=== PATIENT | female | born 1965 | race Caucasian/White ===

== ENCOUNTER 2025-02-22 15:55 | Inpatient (IN) | payer OTHER, SELFPAY ==
[2025-02-20 21:36] VITALS: BP 165/74
[2025-02-20 21:42] VITALS: BMI 33.5
[2025-02-20 22:01] VITALS: BP 159/78
[2025-02-20 22:29] LABS: Hematocrit 41.6 % (37.0-47.0); Hemoglobin 14.4 g/dL (12.0-16.0); Mean Corp Hgb Conc. 34.6 g/dL (33.0-37.0); Mean Corpuscular Volume 88.9 fL (81.0-99.0); Nucleated Red Blood Cells % 0 %; Platelet Count 185 10^3/uL (130-400); Red Cell Dist. Width 13.5 % (11.5-14.5)
[2025-02-20] MEDS: DUONEB 3 ML INH (22:41)
[2025-02-20 23:00] VITALS: BP 162/117
[2025-02-20 23:04] LABS: ALT (SGPT) 18 U/L (0-35); AST (SGOT) 25 U/L (14-36); Albumin 4.0 g/dl (3.5-5.0); Alkaline Phosphatase 103 U/L (38-126); Blood Urea Nitrogen 13 mg/dl (7-17); Calcium 9.1 mg/dl (8.4-10.2); Carbon Dioxide 23 mmol/L (22-30); Chloride 104 mmol/L (98-107); Estimated Creatinine Clearance 84 ml/min; Glucose 130 mg/dl (70-99); Potassium 4.2 mmol/L (3.5-5.1); Sodium 134 mmol/L (135-145); Total Protein 6.5 g/dl (6.3-8.2); eGFR > 60.00
[2025-02-20 23:16] LABS: INR 2.76; PT 29.1 Sec (11.4-14.6)
[2025-02-20] MEDS: DECADRON 10 MG IV (23:21)
[2025-02-21] VITALS (12 sets, daily range): BP systolic 103–144; BP diastolic 54–92; O2SAT 97; BMI 32.5; BMI 32.3
[2025-02-21] MEDS: DUONEB 3 ML INH (01:26)
--- NOTE | 2025-02-21 01:29 | ED.GENMED ---
Addendum entered and electronically signed by Declan Crystal DO 02/21/25 03:44:
In light of leukocytosis and urinalysis with 3+ leuk esterase and white cells, cover with antibiotics for UTI.
Original Note:
History of Present Illness
General
Chief Complaint: Breathing Problem
Source: patient
Time Seen by Provider: 02/20/25 21:46
History of Present Illness
History of Present Illness:
Note:
CHIEF COMPLAINT(S)
Difficulty breathing.
HISTORY OF PRESENT ILLNESS
The patient is a 59-year-old female with a history of stroke, currently presenting to the emergency department with difficulty breathing, which started slightly the day before yesterday and worsened by this morning and tonight. She has a
tracheostomy from a past stroke, which occurred approximately 15 years ago. The patients brother reports that there was no fever, and she felt tired. The patients breathing improved slightly after receiving breathing treatments provided by EMS. The
brother also confirms that patient had a history of atrial fibrillation and heavy smoking, but was never diagnosed with asthma or emphysema. The patient also has a thyroid problem, as mentioned during the discussion.
ADDITIONAL HISTORY OBTAINED FROM SOURCES OTHER THAN THE PATIENT
Per the patients brother, she has a history of stroke and atrial fibrillation and was a heavy smoker. He additionally notes she has a thyroid problem and takes Coumadin (Warfarin) for atrial fibrillation. The patients brother confirms that she was
diagnosed with aphasia post-stroke, with slight weakness in the right lower extremity. She lives independently but is supported by her brother who is a mile away.
CHRONIC MEDICAL CONDITIONS SIGNIFICANTLY AFFECTING CARE
- Stroke (with aphasia and slight right lower extremity weakness)
- Atrial fibrillation
- Thyroid problem (unspecified)
- History of smoking
SOCIAL HISTORY
The patient was a heavy smoker, although the specific cessation date was not mentioned.
MEDICATIONS
The patient is on Coumadin (Warfarin) for atrial fibrillation.
REVIEW OF SYSTEMS
- Respiratory: Difficulty breathing since yesterday, slightly relieved by breathing treatments.
- Neurological: Aphasia and slight right lower extremity weakness due to past stroke.
- Cardiovascular: History of atrial fibrillation.
PHYSICAL EXAM
General: Alert, no acute distress.
Skin: Warm, dry.
Head: Normocephalic, atraumatic.
Neck: Supple, trachea midline.
Eye, Ears, Nose, Mouth, and Throat: Oral mucosa moist.
Respiratory: Mild bilateral rhonchi, respirations are non-labored.
Cardiovascular: Heart is regular without murmur, normal peripheral perfusion.
Gastrointestinal: Abdomen nondistended.
Back: Normal range of motion, normal alignment.
Musculoskeletal: Normal range of motion, normal strength, slight weakness in right lower extremity.
Neurological: Alert, aphasia present, slight right lower extremity weakness.
Psychiatric: Cooperative, appropriate mood and affect.
PROBLEM LIST
Acute Problems:
- Difficulty breathing
- Mild bilateral rhonchi
Chronic Problems:
- Stroke with aphasia and right lower extremity weakness
- Atrial fibrillation
- Thyroid problem
- Heavy smoking history
PLAN
An x-ray will be performed to check for any narrowing or inflammation due to the old tracheostomy or in the lungs. An additional breathing treatment and potentially steroids could be administered to reduce inflammation. The possibility of conducting
an INR test to manage anticoagulation therapy with Warfarin. Assessing the need for further breathing treatments based on the x-ray and lab results.
DIFFERENTIAL DIAGNOSIS
The Differential Diagnosis includes, in no particular order and is not limited to:
1. Chronic Obstructive Pulmonary Disease exacerbation
2. Lung infection or pneumonia
3. Pulmonary edema
4. Asthma
5. Pulmonary fibrosis
6. Cardiogenic dyspnea due to atrial fibrillation
7. Pulmonary embolism
8. Tracheal stenosis post-tracheostomy
9. Heart failure
10. Interstitial lung disease
Disposition:
SUMMARY OF ENCOUNTER
The patient, a 59-year-old female with a history of stroke and atrial fibrillation, presented to the emergency department with difficulty breathing. She has a history of tracheostomy from a past stroke. She felt slightly better after receiving
bronchodilators. There is suspicion of Chronic Obstructive Pulmonary Disease (COPD) as the underlying cause due to her history of heavy smoking, although no stridor was noted. A possible subglottic stenosis was considered. On reassessment, the
patient exhibited dyspnea upon ambulation to the bathroom. She received steroids for treatment and was admitted for close monitoring.
DISPOSITION
Admit for close monitoring.
ASSESSMENT
The patient likely has COPD exacerbation contributing to her respiratory symptoms. Other considerations include subglottic stenosis secondary to her tracheostomy history, though no overt signs were noted. A lung infection was ruled out based on the
chest x-ray findings.
EMERGENCY TREATMENTS ADMINISTERED
Steroids were administered to manage inflammation possibly contributing to her breathing difficulties.
INDEPENDENT REVIEW OF LABS AND INTERPRETATION OF TESTS
- My independent review of the chest x-ray indicates no pneumonia, helping to rule out a lung infection.
- My independent review of the INR shows it is therapeutic at 2.7.
- My independent review of chemistries and liver function tests (LFTs) indicates that they are normal.
PLAN
The patient has been admitted for close monitoring of her respiratory status. Further evaluation of her breathing difficulties will be conducted to discern the exact cause, whether COPD or a complication related to her tracheostomy. Continued
monitoring and management of her atrial fibrillation with therapeutic INR levels will be necessary.
MEDICAL DECISION MAKING
- Number and Complexity of Problems Addressed:
- Chronic conditions affecting care: Stroke with aphasia and right lower extremity weakness, atrial fibrillation, thyroid problem, history of smoking.
- Differential Diagnosis: Chronic Obstructive Pulmonary Disease exacerbation, lung infection or pneumonia, pulmonary edema, asthma, tracheal stenosis post-tracheostomy, heart failure, interstitial lung disease.
- Data:
- Category 1: My independent interpretation of the chest x-ray, reviewed INR and chemistries.
- Category 2: Clinical information was obtained from an independent historian, the patients brother.
- Risk:
- Prescription drug management and therapy requiring monitoring for toxicity due to the administration of steroids and management of the patients atrial fibrillation with Warfarin.
DIAGNOSIS
1. Chronic Obstructive Pulmonary Disease exacerbation (ICD-10: J44.1)
2. History of stroke with aphasia and right lower extremity weakness (ICD-10: I69.920)
3. Atrial fibrillation (ICD-10: I48.91)
Past History
Past History
ED Past Medical History: Arrthythmia and CVA
Social History
Tobacco: Former smoker
Personal: Single
Living: alone
Employment: Disabled
Family History
Family History: Other (Noncontributory)
Phy Exam
Physical Exam
Physical Exam:
.
Scores
Heart Failure Risk
Heart Failure Risk Score: Not Applicable
Course
Orders/Labs/Results
Orders:
Orders
02/20/25 21:34
Electrocardiogram (*1) Urgent
Reason for Study: Other
Other Reason for Exam: Respiratory Distress
Cardiac Monitoring- Treatment ONCE
EKG- Treatment ONCE
IV Insert/Care/Rem.- Treatment PRN
CR Chest - 2 Views Urgent
Comment:
Reason For Exam: respiratory distress
O2 Therapy [RESP] Urgent
Titrate/Wean O2 to maintain O2 sat greater than (%): 93
Special Instructions: TO MAINTAIN CONTINUOUS O2 SATS >/= 93%
Pulse Ox/cont/shift [RESP] Urgent
Quantity: 1
Special Instructions: continuous pulse ox
02/20/25 22:16
Complete Blood Count/With Diff Urgent
Comprehensive Metabolic Panel Urgent
02/20/25 22:33
Ipratropium/Albuterol Sulfate [Duoneb] 3 ml INH R NOW ONE
02/20/25 22:59
PT/INR [Prothrombin Time] Urgent
02/20/25 23:18
Dexamethasone Sod Phosphate [Decadron] 10 mg IV NOW STA
02/21/25 01:26
Ipratropium/Albuterol Sulfate [Duoneb] 3 ml INH R NOW ONE
02/21/25 01:29
Ipratropium/Albuterol Sulfate [Duoneb] 3 ml INH R NOW STA
02/21/25 01:32
Vital Signs- Treatment ONCE
Frequency: Once
02/21/25 01:54
Urinalysis Reflex To Culture Urgent
Date Specimen was Collected: 02/21/25
Time Specimen was Collected: 01:52
Urine Microscopic Reflex Cult Urgent
Urine Culture Urgent
LENORE Source: U
Specimen Description:
Date Specimen was Collected: 02/21/25
Time Specimen was Collected: :52
Abnormal Lab Results
02/20/25 02/20/25 02/21/25
22:16 22:59 01:54
WBC 12.8 H 10^3/uL
(4.8-10.8)
MPV 10.7 H fL
(7.4-10.4)
Abs Immat Gran (auto) 0.1 H 10^3/uL
(0-0.05)
Absolute Neuts (auto) 11.6 H 10^3/uL
(1.4-6.5)
Absolute Lymphs (auto) 0.6 L 10^3/uL
(1.2-3.4)
Neutrophils % 91.0 H %
(42.2-75.2)
Lymphocytes % 4.7 L %
(20.5-51.1)
PT 29.1 H Sec
(11.4-14.6)
Sodium 134 L mmol/L
(135-145)
Glucose 130 H mg/dl
(70-99)
Ur Occult Blood Reflex 3+ A
(Negative)
Leukocyte Esterase Rfl 3+ A
(Negative)
Urine RBC 11-15 A /HPF
(0-2)
Urine WBC (Reflex) 16-20 A /HPF
(0-5)
Urine Bacteria (Reflex) Moderate A
(Negative)
02/20/25 22:16
02/20/25 22:16
Vital Signs
Initial and Last Documented VS:
Initial Vital Signs
Temp Pulse Resp BP Pulse Ox
99.1 F 93 26 165/74 93
02/20/25 21:36 02/20/25 21:36 02/20/25 21:36 02/20/25 21:36 02/20/25 21:36
Last Documented Vital Signs
Temp Pulse Resp BP Pulse Ox
99.1 F 81 17 103/56 90
02/20/25 22:12 02/21/25 03:00 02/21/25 03:00 02/21/25 03:00 02/21/25 03:00
*Pulse Oximetry
SaO2: 96
Oxygen Mode of Delivery: Room air
Patient hypoxic: no
*Critical Care Note
Total Time (30-74mins, 75-104mins- exclusive of procedures): Not Applicable
ED Attending Note
-
Portions of this chart may have been created with voice recognition software.� Occasional wrong word or��sound alike� substitutions may have occurred due to the inherent limitations of voice recognition software.
Discharge Plan
Departure
Patient Disposition: Admit
Date of Disposition: 02/21/25
Time of Disposition: 01:30
Admit to: Telemetry
Presentation/result/management discussed w/ accepting MD/DO: Hospitalist
Discharge Problem:
Dyspnea, suspected COPD
Prescriptions:
No Action
levetiracetam 500 MG tablet
500 mg PO BID
warfarin [Jantoven] 2.5 MG tablet
2.5 mg PO .MONWEDFRI
warfarin [Jantoven] 5 MG tablet
5 mg PO .SUNTUETHUSAT
methimazole 5 MG tablet
5 mg PO DAILY
metoprolol tartrate 25 MG tablet
25 mg PO BID
Referrals:
Syh Fox CRNP [Family Provider, General]
Interventions
Interventions:
*Risk Screen - Suicide Last Done: 02/20/25 22:01
*General Assessment Last Done: 02/20/25 21:42
*Neglect/Abuse Screening Last Done: 02/20/25 22:01
*ED- Fall Risk Assessment Last Done: 02/20/25 21:42
*ED COVID-19 Vaccine History Last Done: 02/20/25 21:42
ED- Cardiac Assessment Last Done: 02/20/25 22:01
ED- Pulmonary Assessment Last Done: 02/20/25 22:01
Discharge Date and Time
Print Language: BULGARIAN
[2025-02-21 02:00] LABS: Urine Character Clear (Clear)
[2025-02-21 03:15] LABS: Urine Urothelial Cell 16-20 /LPF (FEW)
[2025-02-21 03:19] LABS: Urine White Cell 16-20 /HPF (0-5)
[2025-02-21] MEDS: VENTOLIN NEBULES 7.5 MG INH (03:51)
[2025-02-21] MEDS: ROCEPHIN 1000 MG IV (03:52)
--- NOTE | 2025-02-21 05:12 | HPS.HSE ---
Family Physician
-
Family Physician: Shy Fox
Chief Complaint
-
SOB
History of Present Illness
Patient is a 59y F with PMH significant for CVA with R hemiparesis and aphasia who presents to ED complaining of SOB. Patient states that she has been SOB for the past two days - with symptoms increasing throughout that time. She describes a
'pressure' sensation on her chest and difficulty getting a deep breath. No cough. No fevers / chills. No abdominal pain. No GI or symptoms.
Medical History
Past Medical History
Past Medical History: Reports Other
Additional Past Medical History:
CVA with Right Hemiparesis / Expressive Aphasia
Atrial Fibrillation
Thyroid Disorder
Obesity
Past Surgical History: Reports Other
Additional Past Surgical History:
Tracheostomy
Social History
Tobacco: Former Smoker
Alcohol: None
Drug: None
Living: Alone
Family History
Family History: Not pertinent
Allergies / Home Medications
Allergies reflects when Allergies were last updated in [employer]
Home Medications with original date entered in [employer]
Allergy/Medication List:
Patient unable to provide current medications / doses.
If medication reconciliation has not been performed, why?: Medication List N/A
Review of Systems
-
History Source: Patient
A 12 point ROS was completed and negative except as noted: Yes
Constitutional: Reports Fatigue; Denies Fever or Chills
EENT: Denies Sore Throat
Respiratory: Reports Trouble Breathing; Denies Cough
Cardiac: Reports Chest Pain; Denies Diaphoresis or Palpitations
Abdomen/GI: Denies Abdominal Pain, Nausea, Vomiting or Diarrhea
: Denies Dysuria or Frequency
Musculoskeletal: Denies Joint Pain or Edema
Neurological: Reports Weakness; Denies Dizzy or Headache
Psych: Denies Depression or Anxiety
Physical Exam
Vital Signs
Vital Signs
Temp Pulse Resp BP Pulse Ox
99.1 F 81 17 103/56 90
02/20/25 22:12 02/21/25 03:00 02/21/25 03:00 02/21/25 03:00 02/21/25 03:00
Physical Exam
General: Other (59y F in mild distress due to dyspnea.)
HEENT: Moist mucous membranes, PERRLA and Other (Thick neck. Tracheostomy scar.)
Respiratory: Clear; No Wheezes, Rales or Rhonchi
Cardiac: S1/S2 and Irregular Rhythm; No Murmur
GI: Soft, Non Tender, Non Distended and Normal Bowel Sounds
Musculoskeletal: No Clubbing, No Cyanosis and No Edema
Neuro: AO x 3 and Other (R sided weakness. Expressive aphasia.)
Laboratory Results
-
02/20/25 22:16
02/20/25 22:16
Laboratory Results
PT 29.1 Sec (11.4-14.6) H 02/20/25 22:59
INR 2.76 02/20/25 22:59
Total Bilirubin 0.6 mg/dl (0.2-1.3) 02/20/25 22:16
AST 25 U/L (14-36) 02/20/25 22:16
ALT 18 U/L (0-35) 02/20/25 22:16
Alkaline Phosphatase 103 U/L (38-126) 02/20/25 22:16
Impression/Plan
-
A/P: Patient is a 59y F with PMH significant for CVA with R hemiparesis / aphasia and A-Fib who presents to ED complaining of SOB.
Subjective Dyspnea
- Observe overnight for further evaluation and treatment.
- Unclear etiology of symptoms.
- No wheezing on exam for me. No cough. CXR clear.
- Patient describes sense of chest pressure.
- EKG with A-Fib and non-specific ST changes with no prior tracing to compare.
- Check troponin now and trend.
- ASA daily.
- Follow for hypoxemia, cough, wheezing or other new symptoms.
- ? tracheitis or viral bronchitis.
- Supportive care, nebs, etc.
- Patient on Coumadin with therapeutic INR so PE seems unlikely.
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
- Stable. No new focal deficits.
- Patient is capable of communication albeit with some difficulty.
- Need formal med rec in AM and then resume appropriate meds.
Atrial Fibrillation - Unknown Type
- Stable. Continue Coumadin and follow daily INR / adjust as needed.
- Med rec in AM to confirm dose, etc.
Abnormal UA
- UA with squamous cells and no reported urinary symptoms.
- Hold on further abx for now and follow-up culture data.
DVT Prophylaxis: On Coumadin
Code Status: Full
[2025-02-21 05:38] LABS: COVID-19 Antigen Negative (Negative)
[2025-02-21 06:00] LABS: Troponin I 0.016 ng/ml
[2025-02-21 06:18] LABS: Hematocrit 40.4 % (37.0-47.0); Hemoglobin 14.0 g/dL (12.0-16.0); Mean Corp Hgb Conc. 34.7 g/dL (33.0-37.0); Mean Corpuscular Volume 89.2 fL (81.0-99.0); Platelet Count 187 10^3/uL (130-400); Red Cell Dist. Width 13.6 % (11.5-14.5)
[2025-02-21 06:25] LABS: INR 2.22; PT 24.7 Sec (11.4-14.6)
[2025-02-21 06:51] LABS: Blood Urea Nitrogen 10 mg/dl (7-17); Calcium 8.5 mg/dl (8.4-10.2); Carbon Dioxide 23 mmol/L (22-30); Chloride 107 mmol/L (98-107); Estimated Creatinine Clearance 95 ml/min; Glucose 187 mg/dl (70-99); Potassium 3.8 mmol/L (3.5-5.1); Sodium 138 mmol/L (135-145); eGFR > 60.00
[2025-02-21 06:57] LABS: Troponin I 0.019 ng/ml
[2025-02-21] MEDS: LOW STRENGTH ASPIRIN 81 MG PO (07:28)
--- NOTE | 2025-02-21 09:28 | CARDSERVLU ---
Echocardiogram with Lumason completed after protocol screening completed. Allergies verified.
Patent IV site: __existing 22P RH___
IV site flushed with 0.9% NaCl pre and post administration.
Diluted bolus method utilized to enhance visualization of ventricular nguyễn.
Total volume given: ___2.5_ mL
Tolerated well. Request from ED to send pt to ultrasound at completion of testing in cardiac services.
Patient tolerated all procedures well without complications.
[2025-02-21 12:36] LABS: Troponin I < 0.012 ng/ml
[2025-02-21] MEDS: KEPPRA 500 MG PO ×2 (13:24→20:40)
[2025-02-21] MEDS: LASIX 40 MG IV (13:24)
--- NOTE | 2025-02-21 13:50 | PTOTSP ---
Speech Therapy Evaluation:
Pt with acute on chronic risk factors for dysphagia including hx of CVA with subsequent trach, compounded by ongoing shortness of breath. Pt endorsed occasional trouble swallowing, however unable to elaborate given expressive language deficits. At
bedside, oral phase grossly functional. Mastication prolonged but likely related to partially edentulous state versus true oral dysphagia. No overt s/sx of aspiration across trials. CXR without pneumonia, WBC WNL, and pt on room air.
Recommend:
1. Continue regular solids and thin liquids
2. Meds as tolerated
3. General aspiration precautions
4. KETTLE SKIMMER to follow to monitor tolerance of diet, likely brief
--- NOTE | 2025-02-21 14:41 | W.PN.UPDATE ---
Update Note
Progress Note Update
Patient dyspneic, elevated proBNP. Echo with EF of 30 to 35%. Initiated IV diuretics. Cardiology consulted.
Switch lopressor to Toprol
ASA as per Cards
On coumadin
--- NOTE | 2025-02-21 14:50 | CON.CAR ---
Addendum entered and electronically signed by Omari Orellana DO 02/21/25 21:25:
I saw and examined the patient.
The Greenhouse Laborer's note was reviewed and I agree with the note.
Comment:
Plan:
Pt with PMH of prior CVA with thrombectomy at [facility] with residual aphasia. She is on coumadin and son relates a hx of AFib although PCP notes fail to mention this.
Additional records from [facility] should be acquired if able.
CM of unknown duration noted.
Cont IV diuresis for HF
IF CM is subacute but new, pt may benefit from ischemic eval inpt vs outpt, stress vs cath pending chronicity and response to therapy.
She does have episodes of palpitations at times. she will require outpt monitor to assess for recurrent AFib and burden
Troponins are negative.
Will work on GDMT as bp will allow including beta adán and ACEI/ARB and potentially aldactone.
Discussed with family at bedside including son.
Addendum entered and electronically signed by Karen Hendricks PA-C 02/21/25 15:37:
On review of records from including most recent office visit 10/19/24, patient with no known history of atrial fibrillation, but is on Coumadin for 'other thrombophilia'. Other medical history as listed below.
Original Note:
Consultation
Consultation Request
Date/Time Consultation Performed: 02/21/25
Requesting Provider: Dr. Enamorado
Performing Provider: Karen Hendricks PA-C for Dr. Orellana
Reason for Consultation: SOB, abnormal echo
Medical History
-
Chief Complaint: SOB
History of Present Illness:
Patient is a 59-year-old female with past medical history of hyperthyroidism, history of stroke with residual expressive aphasia, prior tracheostomy, history of seizure, atrial fibrillation on chronic Coumadin managed by PCP who presented to
[facility] for evaluation of shortness of breath. She reports noting dyspnea on exertion which came on suddenly. Denies chest pain or palpitations. Cardiology consulted as echocardiogram showed EF 30 to 35% with no prior to compare.
Patient and family at bedside are unsure if she has a lure maker. PCP is Shy ARREDONDO.
PMH:
History of CVA with residual expressive aphasia
Prior tracheostomy in setting of above
History of seizure
Atrial fibrillation on chronic coumadin managed by PCP
Hyperthyroidism
Former smoker
Past Medical History
Past Medical History: Other (in HPI)
Social History
Tobacco: Former Smoker
Living: Alone
Family History
Family History: Reviewed & Not Pertinent
Allergies / Home Medications
Allergy/AdvReac Type Severity Reaction Status Date / Time
No Known Allergies Allergy Verified 11/13/17 13:43
�Medication �Instructions �Recorded �Confirmed �Type
levetiracetam 500 mg tablet 500 mg PO BID 02/21/25 02/21/25 History
(Keppra)
methimazole 5 mg tablet 5 mg PO DAILY 02/21/25 02/21/25 History
metoprolol tartrate 25 mg tablet 25 mg PO DAILY 02/21/25 02/21/25 History
warfarin 2.5 mg tablet 2.5 mg PO DIRECTED 02/21/25 02/21/25 History
Review of Systems
-
History Source: Patient and Family
All other systems: Negative unless noted
Physical Exam
Vital Signs
Temp Pulse Resp BP Pulse Ox
98 F 78 16 129/78 96
02/21/25 10:56 02/21/25 13:24 02/21/25 10:56 02/21/25 13:24 02/21/25 10:59
Lab Results
02/21/25 05:57
02/21/25 05:57
Troponin I < 0.012 ng/ml D 02/21/25 11:50
Fpc-T-Ioamosknuuq Pept 2040 pg/ml 02/21/25 05:57
Physical Exam
General: No Apparent Distress, Comfortable and Other (sitting in chair)
HEENT: Normocephalic, Anicteric and Moist Mucous Membranes
Respiratory: Clear and Non Labored Respirations
Cardiac: Regular Rhythm
GI: Soft, Non Tender, Non Distended and Normal Bowel Sounds
Musculoskeletal: No Clubbing, No Cyanosis and No Edema
Skin: Warm and Dry
Neuro: Awake, Alert, Oriented (to self, place) and Other (expressive aphasia)
Impression / Plan
-
PCP: Shy ARREDONDO
Pantry Cook: unknown
Assessment:
Presentation with SOB
COPD exacerbation
Acute HFrEF
CM, EF 30-35%
History of CVA with residual expressive aphasia
Prior tracheostomy in setting of above
History of seizure
Atrial fibrillation on chronic coumadin managed by PCP
Hyperthyroidism
Former smoker
Echo 02/21/2025: TDS, EF 30 to 35%, diffusely hypokinetic LV with apical dyskinesis, trivial pericardial effusion, mild MR, no prior for comparison
Plan:
- Patient presented with shortness of breath, particularly with exertion. With concern for COPD exacerbation, however then echocardiogram showed reduced EF 30 to 35%, unclear if new. proBNP elevated at 2039. Chest x-ray read as no acute
cardiopulm process. cardiology consulted for evaluation for heart failure, new diagnosis for patient
- requested records from PCP for review
- Continue IV Lasix, given 40mg IV today.
- Echocardiogram reviewed with patient and family at bedside
- Troponins in negative range. No chest pain
- Transitioned Lopressor to Toprol
- Creatinine stable at 0.7. Will add DAVE versus ARB, Aldactone, SGLT2 inhibitor as blood pressure/creatinine allow
- CHF education
- Will need eventual ischemic evaluation. Would consider for inpatient nuclear stress testing versus cardiac catheterization, likely would favor former given comorbidities
- INR therapeutic at 2.22. If plan for cardiac catheterization, will need to hold and would load with aspirin
- check TSH
- Peripheral vascular ultrasound without evidence of DVT
- Discussed with nursing
Data Reviewed
-
EKG: Tracing Personally Visualized and interpreted
Radiology: Report Reviewed by me
Ultrasound: Report Reviewed by me
Medical Tests (Nuc Med, Echo etc): Report Reviewed by me
Labs: Labs Reviewed by me
Old Records: Reviewed
--- NOTE | 2025-02-21 15:03 | CM ---
CM reviewed chart and met with pt and her stepmother Corinna karen in ED. Pt lives alone in 3rd floor apartment, no elevator, 3 full flights of steps.
Independent in ADLs, personal care and ambulation. Uses cane. Only other DME is tub/shower rails.
Confirms prescription coverage
OBS form reviewed and signed
Hx VN, unsure of agency, hx [facility] after stroke, no history SNF.
PCP: Shy Fox
Pharmacy: [facility], [address], [place]
Anticipate dc home, CM will continue to follow for all discharge panning needs.
[2025-02-21 15:52] LABS: Magnesium 2.0 mg/dl (1.6-2.3)
[2025-02-21] MEDS: COUMADIN 3 MG PO (18:26)
--- NOTE | 2025-02-21 18:52 | PTCARENOTE ---
Rec'd pt from the ED, oriented to room and unit. Pt placed on tele. Pt call joshi provided, encouraged pt to ring melchor. Pt denies pain. pt has aphasia, able to make her basic needs known.
[2025-02-21] MEDS: VENTOLIN NEBULES 2.5 MG INH (23:24)
[2025-02-22] VITALS (7 sets, daily range): BP systolic 96–147; BP diastolic 50–96; BMI 32.3
[2025-02-22] MEDS: VENTOLIN NEBULES 2.5 MG INH (04:30)
--- NOTE | 2025-02-22 04:46 | PTCARENOTE ---
Patient had a 9 beat run of asymptomatic VTach. BP was 143/96 and HR was 77. Patient is now normal sinus rhythm with PVC`s. PERSONNEL MANAGER made aware.
[2025-02-22 08:24] LABS: Hematocrit 41.8 % (37.0-47.0); Hemoglobin 14.0 g/dL (12.0-16.0); Mean Corp Hgb Conc. 33.5 g/dL (33.0-37.0); Mean Corpuscular Volume 90.9 fL (81.0-99.0); Platelet Count 213 10^3/uL (130-400); Red Cell Dist. Width 13.8 % (11.5-14.5)
[2025-02-22 08:30] LABS: INR 1.87; PT 22.0 Sec (11.4-14.6)
[2025-02-22] MEDS: TOPROL XL 25 MG PO (08:40)
[2025-02-22] MEDS: TAPAZOLE 5 MG PO (08:40)
[2025-02-22] MEDS: KEPPRA 500 MG PO ×2 (08:41→19:59)
[2025-02-22] MEDS: LASIX 40 MG IV (08:41)
[2025-02-22 08:56] LABS: ALT (SGPT) 18 U/L (0-35); AST (SGOT) 21 U/L (14-36); Albumin 3.8 g/dl (3.5-5.0); Alkaline Phosphatase 90 U/L (38-126); Blood Urea Nitrogen 19 mg/dl (7-17); Calcium 8.7 mg/dl (8.4-10.2); Carbon Dioxide 29 mmol/L (22-30); Chloride 104 mmol/L (98-107); Estimated Creatinine Clearance 73 ml/min; Glucose 126 mg/dl (70-99); Magnesium 2.2 mg/dl (1.6-2.3); Potassium 3.6 mmol/L (3.5-5.1); Sodium 140 mmol/L (135-145); Total Protein 6.3 g/dl (6.3-8.2); eGFR > 60.00
--- NOTE | 2025-02-22 10:13 | CM ---
Reviewed chart. Met with patient at bedside. Remains on IV lasix and room air.
Plan: pending the results or cardiac testing
--- NOTE | 2025-02-22 13:42 | W.PN.HOSP.TC ---
Today's Communication/Plan
-
cont iv diuresis
monitor daily weights, Is&Os
F/u Lipid panel
Toprol
Add on Entresto and GDMT as per cards - Can decide once established if inpt v outpt CAD eval being performed
Assessment / Plan
Assessment / Plan
Physical Exam
General: Other (59y F in mild distress due to dyspnea.)
HEENT: Moist mucous membranes, PERRLA and Other (Thick neck. Tracheostomy scar.)
Respiratory: Clear; No Wheezes, Rales or Rhonchi
Cardiac: S1/S2 and Irregular Rhythm; No Murmur
GI: Soft, Non Tender, Non Distended and Normal Bowel Sounds
Musculoskeletal: No Clubbing, No Cyanosis and No Edema
Neuro: AO x 3 and Other (R sided weakness. Expressive aphasia.)
A/P: Patient is a 59y F with PMH significant for CVA with R hemiparesis / aphasia and A-Fib who presents to ED complaining of SOB.
Subjective Dyspnea
#Acute HFrEF
� Continue IV diuresis
� Monitor Daily weights, I's and O's
� Cardiology consulted
� Switch Lopressor to Toprol
� TSH 1.5
� Troponins negative
� GDMT as per cardiology, anticipate initiating Entresto
� Heart cath versus nuclear stress test as per cardiology
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
- Stable. No new focal deficits.
- Patient is capable of communication albeit with some difficulty.
�On Coumadin
� No aspirin although on Coumadin
� Follow-up outpatient
� Follow LDL
Atrial Fibrillation - Unknown Type
- Stable. Continue Coumadin and follow daily INR / adjust as needed.
- Switch to Toprol
� Patient has palpitations times, will require outpatient monitor
#Seizures
� Continue Keppra
DVT Prophylaxis: On Coumadin
Code Status: Full
Total time spent on today's encounter was 51 minutes which included time spent in counseling the patient/family regarding diagnosis and treatment plan as listed above, goals of care, and symptom management. Case was discussed with nursing staff,
specialists, and care coordinators/case management. All labs and imaging personally reviewed by me. Remainder the time spent in detailed review of previous records, lab data, imaging, and other medical provider documentation.
Anticipated Discharge: Within 24 hours
Subjective/Interval History
-
Date of Service: February 22, 2025
not much subjective improvement
Objective Data
-
Labs:
Laboratory Results
02/22/25
07:43
WBC 9.6
Hgb 14.0
Hct 41.8
Plt Count 213
PT 22.0 H
INR 1.87
Sodium 140
Potassium 3.6
Chloride 104
Carbon Dioxide 29
BUN 19 H
Creatinine 0.9
Glucose 126 H
Calcium 8.7
Total Bilirubin 0.3
AST 21
ALT 18
Alkaline Phosphatase 90
Vital Signs:
Vital Signs
Temp Pulse Resp BP Pulse Ox
98.1 F 83 16 147/81 95
02/22/25 11:15 02/22/25 11:15 02/22/25 11:15 02/22/25 11:15 02/22/25 11:15
I&O
02/21/25 02/22/25 02/23/25
06:59 06:59 06:59
Intake Total 200 / 200
Output Total 700 / 700
Balance -500 / -500
Review of Systems
-
History Source: Patient
All other systems: Not reviewed unless documented
Data Reviewed
-
Medical Tests (Nuc Med, Echo etc): Report Reviewed by me
Labs: Labs Reviewed by me
--- NOTE | 2025-02-22 14:31 | W.PN.CARDCBS ---
Addendum entered and electronically signed by Desirae iMchael DO 02/22/25 22:09:
I saw and examined the patient.
The Staffing Director's note was reviewed and I agree with the note.
Comment: Patient seen and examined. Difficult historian given prior stroke. Also discussed history and current plan with patient's family member and caregiver Corinna
GEN: NAD with expressive aphasia/Chronic right-sided weakness
HEENT: mmm. trach scar
LUNGS: CTA B/L, no wheezes/rales
CV: Reg, S1/S2, no murmur
ABD: soft, BS+, NT/ND
EXT: No edema
Plan:
Presented with shortness of breath found to have new cardiomyopathy with a EF 30-35%, etiology unknown
- Volume status improving with IV Lasix
- Echocardiogram with EF 30-35% with apical dyskinesis and no prior for comparison. Patient and family deny prior history of cardiomyopathy. Had previously seen a signal tester following stroke [facility] and [facility]. Believes signal tester
was at [facility] and may have been a part his CCP although this is not confirmed. Has had no recent cardiology follow-up.
- We discussed ischemic evaluation with plan for left/right heart catheterization this admission when INR allows, less than 1.5. N.p.o. after midnight for possible catheterization tomorrow versus Thursday pending INR.
- IV heparin while off Coumadin
- Goal-directed medical therapy to be initiated:
- Metoprolol tartrate was transition to metoprolol succinate 25 mg once daily.
-Lisinopril 2.5 mg started this admission with possible transition to Entresto. Will have case management assess cost.
- Will start SGLT2 inhibitor, Farxiga 10 mg daily prior to discharge.
- Continue aspirin 81 mg daily
- Check lipid profile; start atorvastatin 20 mg daily awaiting profile result.
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 Continue Keppra.
Patient is on Coumadin since her stroke managed by her primary care physician. Corinna and patient do not recall a history of atrial fibrillation however patient's son reported possible history of A-fib. Patient has never been recommended or
prescribed a NOAC. Trying to obtain records from [facility]. No atrial fibrillation this admission. Would consider for ILR either this admission or as an outpatient.
Original Note:
Today's Communication / Plan
-
holding coumadin in preparation for possible cath tomorrow vs Thursday
consider for IV heparin given history of CVA
continue IV lasix
add lisinopril
Impression / Plan
-
PCP: Shy ARREDONDO
Bridge Repair Crew Person: unknown
Assessment:
Presentation with SOB
COPD exacerbation
Acute HFrEF
CM, EF 30-35%
History of CVA with residual expressive aphasia
Prior tracheostomy in setting of above
History of seizure
on chronic coumadin managed by PCP, unclear reasons, possible afib
Hyperthyroidism
Former smoker
Echo 02/21/2025: TDS, EF 30 to 35%, diffusely hypokinetic LV with apical dyskinesis, trivial pericardial effusion, mild MR, no prior for comparison
Plan:
- Patient presented with shortness of breath, particularly with exertion. With initial concern for COPD exacerbation, however then echocardiogram showed reduced EF 30 to 35%, new on review of prior notes. proBNP elevated at 2039. Chest x-ray read
as no acute cardiopulm process. cardiology consulted for evaluation for heart failure, new diagnosis for patient
-responding well to IV lasix, continue. Cr stable. did have some SOB overnight requiring breathing treatments
-echo again discussed with patient and family at bedside 02/22. discussed options regarding further evaluation including stress testing and cardiac catheterization. reviewed cath procedure with patient and family today and they are agreeable to
proceed. INR today 1.87, holding coumadin. for possible cath tomorrow if INR<=1.5 vs Thursday. consider for IV heparin as INR now therapeutic and with history of CVA.
- Echocardiogram reviewed with patient and family at bedside
- Troponins in negative range. No chest pain
- Transitioned Lopressor to Toprol this admission
- Creatinine stable at 0.7. Will add lisinopril 2.5mg daily today. consider for aldactone/SGLT2 inhibitor as BP/Cr allow
- CHF education
- TSH WNL
-consider for OP cardiac monitoring given c/o palpitations at times
-awaiting records from [facility]
Progress Note - Bridge Repair Crew Person
Subjective
Date of Service: February 22, 2025
no CP. reports SOB improved and good urination with IV lasix
Objective
Labs:
02/22/25 07:43
02/22/25 07:43
Labs
Hgb 14.0 g/dL (12.0-16.0) 02/22/25 07:43
Hct 41.8 % (37.0-47.0) 02/22/25 07:43
Plt Count 213 10^3/uL (130-400) 02/22/25 07:43
PT 22.0 Sec (11.4-14.6) H 02/22/25 07:43
INR 1.87 02/22/25 07:43
Sodium 140 mmol/L (135-145) 02/22/25 07:43
Potassium 3.6 mmol/L (3.5-5.1) 02/22/25 07:43
BUN 19 mg/dl (7-17) H 02/22/25 07:43
Creatinine 0.9 mg/dL (0.6-1.0) 02/22/25 07:43
Glucose 126 mg/dl (70-99) H 02/22/25 07:43
Troponins
02/21/25 02/21/25 02/21/25
05:07 05:57 11:50
Troponin I 0.016 0.019 < 0.012 D
02/21/25
17:52
Troponin I Cancelled
Vital Signs and I&O:
Vital Signs
Temp Pulse Resp BP Pulse Ox
98.1 F 83 16 147/81 95
02/22/25 11:15 02/22/25 11:15 02/22/25 11:15 02/22/25 11:15 02/22/25 11:15
Vital Signs
Temp Pulse Resp BP Pulse Ox
98.1 F 83 16 147/81 95
02/22/25 11:15 02/22/25 11:15 02/22/25 11:15 02/22/25 11:15 02/22/25 11:15
Intake & Output
02/20/25 02/21/25 02/22/25 02/23/25
07:59 07:59 07:59 07:59
Intake Total 200 / 200
Output Total 700 / 700
Balance -500 / -500
Physical Exam
Physical Exam
GEN: No distress, awake, alert, oriented x3. with expressive aphasia at times
HEENT: supple, anicteric, mmm, eomi
LUNGS: CTA B/L, no wheezes/rales
CV: Reg, S1/S2, no murmur
ABD: soft, BS+, NT/ND
EXT: No cyanosis, clubbing, edema
NEURO: Gross non-focal
SKIN: Warm, pink, dry. No rash
[2025-02-22] MEDS: LOW STRENGTH ASPIRIN 324 MG PO (15:39)
[2025-02-22] MEDS: ZESTRIL 2.5 MG PO (15:40)
[2025-02-22] MEDS: HEPARIN 25000 UNITS/250 ML IV (17:39)
[2025-02-22 17:49] LABS: APTT 34.6 Sec (23.4-35.0)
[2025-02-22] MEDS: LIPITOR 20 MG PO (23:17)
[2025-02-23] VITALS (8 sets, daily range): BP systolic 83–125; BP diastolic 45–78; PULSE 71; O2SAT 98; BMI 32.7
[2025-02-23 00:11] LABS: APTT 99.9 Sec (23.4-35.0)
[2025-02-23 07:18] LABS: INR 2.02; PT 23.3 Sec (11.4-14.6)
[2025-02-23 07:19] LABS: APTT 63.3 Sec (23.4-35.0)
[2025-02-23 07:34] LABS: ALT (SGPT) 22 U/L (0-35); AST (SGOT) 27 U/L (14-36); Albumin 3.7 g/dl (3.5-5.0); Alkaline Phosphatase 84 U/L (38-126); Blood Urea Nitrogen 33 mg/dl (7-17); Calcium 8.7 mg/dl (8.4-10.2); Carbon Dioxide 28 mmol/L (22-30); Chloride 106 mmol/L (98-107); Estimated Creatinine Clearance 66 ml/min; Glucose 105 mg/dl (70-99); HDL Cholesterol 65 mg/dl; LDL Cholesterol, Calculated 62 mg/dl; Potassium 3.5 mmol/L (3.5-5.1); Sodium 139 mmol/L (135-145); Total Protein 6.3 g/dl (6.3-8.2); Very Low Density Lipoprotein 20 mg/dl (0-30); eGFR > 60.00
[2025-02-23 07:46] LABS: Hematocrit 42.1 % (37.0-47.0); Hemoglobin 14.3 g/dL (12.0-16.0); Mean Corp Hgb Conc. 34.0 g/dL (33.0-37.0); Mean Corpuscular Volume 90.3 fL (81.0-99.0); Platelet Count 207 10^3/uL (130-400); Red Cell Dist. Width 13.7 % (11.5-14.5)
[2025-02-23] MEDS: LASIX 40 MG IV (09:21)
[2025-02-23] MEDS: FLUSH (NSS) 2 FLUSH IV (09:24)
[2025-02-23] MEDS: TAPAZOLE 5 MG PO (09:26)
[2025-02-23] MEDS: ZESTRIL 2.5 MG PO (09:29)
[2025-02-23] MEDS: TOPROL XL 25 MG PO (09:29)
[2025-02-23] MEDS: LOW STRENGTH ASPIRIN 81 MG PO (09:30)
[2025-02-23] MEDS: KEPPRA 500 MG PO ×2 (09:33→20:26)
--- NOTE | 2025-02-23 10:34 | CM ---
Addendum entered by Denise Anglin 02/23/25 12:14:
Pt is currently receiving home PT through [facility] and would like to continue with them post d/c. Pt asked that CM talk to her family member 'Corinna'.Pt stated Corinna will be in today to visit. CM will talk to her at that time. Pt for
cardiac cath today.
Plan: Home with HH when stable
Original Note:
Pharmacy prices for
Entresto 1 tablet BID
90 days: $5.25
30 days
[facility] $163.65
[facility] $169.87
[facility] $170.24
Farxiga 10 mg daily
90 days $8.91
30 days
[facility] &139.19
[facility] $140.03
[facility] $144.49
--- NOTE | 2025-02-23 10:39 | W.PN.CARDCBS ---
Addendum entered and electronically signed by Abram Baltazar MD 02/23/25 20:07:
59-year-old woman with history of prior CVA and IAT at [facility], with residual aphasia, on warfarin but unclear regarding history of atrial fibrillation
PMH/PSH: CVA with expressive aphasia, remote tracheostomy, seizure disorder, hyperthyroidism, prior smoker, unclear whether history of atrial fibrillation
Current medications: Warfarin on hold, metoprolol ER 25 mg a day, methimazole 5 mg daily, levetiracetam, aspirin 81 mg a day, lisinopril 2.5 mg daily, IV heparin, atorvastatin 20 mg a day, furosemide 40 mg IV twice daily
Stepmother at bedside. She still has mild dyspnea. 118/78, pulse 82, respiratory rate 18, afebrile, no distress, expressive aphasia, some weakness right upper extremity, lungs are clear,No obvious murmurs JVD okay, mild edema,
Chest x-ray small effusions, cardiomegaly, limited inspiration
ECG sinus rhythm first-degree AV block, PVCs, left axis deviation, presumed anterior myocardial infarction, low volts
Hemoglobin 14.3, BUN and creatinine are 33 and 1.0, potassium is 3.5, INR is 1.83
Impression:
Acute HFrEF, EF 30-35%
Possible [id number] anterolateral VT
History of CVA with expressive aphasia
COPD
History of seizures
Other diagnoses as below, reviewed in detail and agree, unless otherwise specified
Plan:
Cardiac catheterization in a.m. provided INR has dropped
Original Note:
Today's Communication / Plan
-
LHC when INR < 1.5
Continue diuresis
Replete K
Attempting to get records
Impression / Plan
-
PCP: Shy ARREDONDO
Rn Clinical Documentation: unknown
Assessment:
Presentation with SOB
COPD exacerbation
Acute HFrEF
CM, EF 30-35%
History of CVA with residual expressive aphasia
Prior tracheostomy in setting of above
History of seizure
on chronic coumadin managed by PCP, unclear reasons, possible afib
Hyperthyroidism
Former smoker
Echo 02/21/2025: TDS, EF 30 to 35%, diffusely hypokinetic LV with apical dyskinesis, trivial pericardial effusion, mild MR, no prior for comparison
Plan:
-Presented with shortness of breath, mostly with exertion. Admitted with acute heart failure exacerbation, proBNP 2039.
-Echo 02/21/2025 showed EF 30 to 35%, suspected to be new.
-Diuresing with IV Lasix 40 mg daily, dose increased to 40 mg twice daily on 02/23. Weight up overnight if accurate to 196 lbs. Creatinine stable at 1.0.
-With suspected new cardiomyopathy, planning for inpatient cardiac catheterization once INR is < 1.5.
-She is on Coumadin as outpatient and this remains on hold. On IV heparin while admitted. INR 02/23 is 2.02. Last dose of Coumadin was 02/21.
-Will make NPO at midnight and reassess INR in AM. If INR less than 1.5, will proceed with [facility].
-Remains chest pain free. Troponin in negative range this admission.
-Continue up-titration of medical therapy. Now on lisinopril 2.5 mg daily and Toprol 25 mg daily, both new this admission
-90 Day supplies of both Entresto and Farxiga appear to be affordable based on CM note. Would consider transitioning lisinopril to Entresto and starting Farxiga.
-Unclear if patient has history of afib. Known history of CVA, on chronic Coumadin, however PCP note did not mention known history of A-fib. Unknown public safety director. Called [facility] at [facility] to see if patient was previously seen there.
Japanese Professor noted patient has not been seen there, but reported that from what she could see, [facility] Catherine was then called, but help desk representative there stated they have no record of patient being
seen previously. Awaiting records from [facility].
-Continue aspirin 81mg daily, lipitor 20mg daily. LDL 62
-K 3.5. Will replete.
Progress Note - Rn Clinical Documentation
Subjective
Date of Service: February 23, 2025
No chest pain.
Objective
Labs:
02/23/25 06:52
02/23/25 06:52
Labs
Hgb 14.3 g/dL (12.0-16.0) 02/23/25 06:52
Hct 42.1 % (37.0-47.0) 02/23/25 06:52
Plt Count 207 10^3/uL (130-400) 02/23/25 06:52
PT 23.3 Sec (11.4-14.6) H 02/23/25 06:52
INR 2.02 02/23/25 06:52
APTT 63.3 Sec (23.4-35.0) H 02/23/25 06:52
Sodium 139 mmol/L (135-145) 02/23/25 06:52
Potassium 3.5 mmol/L (3.5-5.1) 02/23/25 06:52
BUN 33 mg/dl (7-17) H 02/23/25 06:52
Creatinine 1.0 mg/dL (0.6-1.0) 02/23/25 06:52
Glucose 105 mg/dl (70-99) H 02/23/25 06:52
Troponins
02/21/25 02/21/25 02/21/25
05:07 05:57 11:50
Troponin I 0.016 0.019 < 0.012 D
02/21/25
17:52
Troponin I Cancelled
Vital Signs and I&O:
Vital Signs
Temp Pulse Resp BP Pulse Ox
97.6 F 68 18 103/66 98
02/23/25 08:00 02/23/25 08:00 02/23/25 08:00 02/23/25 08:00 02/23/25 08:00
Vital Signs
Temp Pulse Resp BP Pulse Ox
97.6 F 68 18 103/66 98
02/23/25 08:00 02/23/25 08:00 02/23/25 08:00 02/23/25 08:00 02/23/25 08:00
Intake & Output
02/21/25 02/22/25 02/23/25 02/24/25
06:59 06:59 06:59 06:59
Intake Total 200 / 200
Output Total 700 / 700
Balance -500 / -500
Physical Exam
Physical Exam
GEN: No distress, awake, alert, oriented x3. with expressive aphasia at times
HEENT: supple, anicteric, mmm
LUNGS: CTA B/L, no wheezes/rales
CV: Reg, S1/S2, no murmur
EXT: No cyanosis, clubbing, edema
NEURO: Gross non-focal
SKIN: Warm, pink, dry. No rash
--- NOTE | 2025-02-23 13:53 | W.PN.HOSP.TC ---
Today's Communication/Plan
-
Cont IV diuresis
LHC once INR <1.5
GDMT as tolerated
Assessment / Plan
Assessment / Plan
Physical Exam
General: Other (59y F in mild distress due to dyspnea.)
HEENT: Moist mucous membranes, PERRLA and Other (Thick neck. Tracheostomy scar.)
Respiratory: Clear; No Wheezes, Rales or Rhonchi
Cardiac: S1/S2 and Irregular Rhythm; No Murmur
GI: Soft, Non Tender, Non Distended and Normal Bowel Sounds
Musculoskeletal: No Clubbing, No Cyanosis and No Edema
Neuro: AO x 3 and Other (R sided weakness. Expressive aphasia.)
A/P: Patient is a 59y F with PMH significant for CVA with R hemiparesis / aphasia and A-Fib who presents to ED complaining of SOB.
Subjective Dyspnea
#Acute HFrEF
� Continue IV diuresis, switch to twice daily dosing
� Monitor Daily weights, I's and O's
� Cardiology consulted
� Switch Lopressor to Toprol
- Lisinopril; Would consider transitioning lisinopril to Entresto and starting Farxiga.
� TSH 1.5
� Troponins negative
� GDMT as per cardiology, anticipate initiating Entresto
� Heart cath versus once INR less than 1.5
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
- Stable. No new focal deficits.
- Patient is capable of communication albeit with some difficulty.
�On Coumadin
� No aspirin although on Coumadin
� Follow-up outpatient
� Follow LDL
Atrial Fibrillation - Unknown Type
- Stable. Continue Coumadin and follow daily INR / adjust as needed.
- Switch to Toprol
� Patient has palpitations times, will require outpatient monitor
#Seizures
� Continue Keppra
DVT Prophylaxis: On Coumadin
Code Status: Full
Anticipated Discharge: 24 - 48 hours
Subjective/Interval History
-
Date of Service: February 23, 2025
Patient states her shortness of breath is slightly improved although weight is up
Objective Data
-
Labs:
Laboratory Results
02/23/25 02/23/25
06:52 15:30
WBC 7.4
Hgb 14.3
Hct 42.1
Plt Count 207
PT 23.3 H
INR 2.02
APTT 63.3 H Pending
Sodium 139
Potassium 3.5
Chloride 106
Carbon Dioxide 28
BUN 33 H
Creatinine 1.0
Glucose 105 H
Calcium 8.7
Total Bilirubin 0.5
AST 27
ALT 22
Alkaline Phosphatase 84
Vital Signs:
Vital Signs
Temp Pulse Resp BP Pulse Ox
97.4 F 82 18 118/78 95
02/23/25 11:50 02/23/25 11:50 02/23/25 11:50 02/23/25 11:50 02/23/25 11:50
I&O
02/22/25 02/23/25 02/24/25
06:59 06:59 06:59
Intake Total 200 / 200
Output Total 700 / 700
Balance -500 / -500
Review of Systems
-
History Source: Patient
All other systems: Not reviewed unless documented
Data Reviewed
-
Medical Tests (Nuc Med, Echo etc): Report Reviewed by me
Labs: Labs Reviewed by me
[2025-02-23 14:57] LABS: Glucose - Point of Care 102 mg/dl (70-99)
--- NOTE | 2025-02-23 15:00 | RR ---
A Rapid Response was called on this patient, please see Rapid Response form.
Patient found sitting on toilet with drowsiness that quickly progressed to unresponsiveness requiring nurse to support patient to prevent her from falling off toilet. Called out for assistance from additional nursing staff and request for rapid
response. Patient became responsive, alert and able to converse within minutes. Patient c/o backpain once alert still sitting on toilet. Patient assisted into wheelchair then into bed by nursing staff. Vital signs, bedside glucose and EKG performed
during rapid response. Telemetry reviewed for sinus rhythm with PVCs. Patient maintained in bed with call joshi in reach. Patient verbalizes understanding to ring for needs.
[2025-02-23] MEDS: KCL 40 MEQ PO (15:09)
[2025-02-23 15:16] LABS: Glycohemoglobin (HgbA1c) 5.9 % (4.0-5.6)
--- NOTE | 2025-02-23 15:42 | CM ---
Aware of Rapid Response. Will follow for any changes in discharge plan
--- NOTE | 2025-02-23 15:52 | W.PN.UPDATE ---
Update Note
Progress Note Update
Patient seen at bedside. She had an episode of witnessed syncope after trying to have a bowel movement. Patient went unresponsive for less than 5 minutes and complaining of back pain when she came to. SBP following event high 80's.
Telemetry shows intermittent PVC's.
Patient is currently awake, alert, in no distress. + expressive aphasia. spoken to with family at bedside. She is in no respiratory distress, no LE swelling.
-hold afternoon Lasix
-250cc x 1 now
-patient s/p K repletion
-checking repeat electrolytes
-Cardiology updated
-continue to monitor on telemetry
[2025-02-23 15:54] LABS: INR 1.83; PT 21.7 Sec (11.4-14.6)
[2025-02-23] MEDS: NSS 250 IV ×2 (15:54→17:32)
[2025-02-23 15:57] LABS: APTT 128.6 Sec (23.4-35.0)
[2025-02-23 15:59] LABS: Troponin I < 0.012 ng/ml
[2025-02-23 16:03] LABS: ALT (SGPT) 26 U/L (0-35); AST (SGOT) 30 U/L (14-36); Albumin 4.2 g/dl (3.5-5.0); Alkaline Phosphatase 89 U/L (38-126); Blood Urea Nitrogen 36 mg/dl (7-17); Calcium 8.9 mg/dl (8.4-10.2); Carbon Dioxide 25 mmol/L (22-30); Chloride 104 mmol/L (98-107); Estimated Creatinine Clearance 47 ml/min; Glucose 116 mg/dl (70-99); Magnesium 2.1 mg/dl (1.6-2.3); Potassium 3.6 mmol/L (3.5-5.1); Sodium 138 mmol/L (135-145); Total Protein 6.8 g/dl (6.3-8.2); eGFR 43.07
[2025-02-23] MEDS: HEPARIN 25000 UNITS/250 ML IV (17:10)
[2025-02-23] MEDS: LIPITOR 20 MG PO (17:10)
[2025-02-23 21:29] LABS: Troponin I < 0.012 ng/ml
[2025-02-24 00:25] LABS: APTT > 200 Sec (23.4-35.0)
--- NOTE | 2025-02-24 00:30 | PTCARENOTE ---
Pt's PTT result came back greater than 200. This RN notified ARNULFO Wilson via TT at 0026. This RN placed heparin gtt on hold per protocol.
[2025-02-24 03:00] VITALS: BP 107/58
[2025-02-24 03:45] VITALS: BMI 33.0
[2025-02-24 07:00] VITALS: BP 137/73
[2025-02-24 08:32] LABS: Hematocrit 41.1 % (37.0-47.0); Hemoglobin 13.5 g/dL (12.0-16.0); Mean Corp Hgb Conc. 32.8 g/dL (33.0-37.0); Mean Corpuscular Volume 92.2 fL (81.0-99.0); Platelet Count 203 10^3/uL (130-400); Red Cell Dist. Width 13.6 % (11.5-14.5)
[2025-02-24 08:42] LABS: INR 1.81; PT 21.1 Sec (11.4-14.6)
[2025-02-24 08:43] LABS: APTT 102.0 Sec (23.4-35.0)
[2025-02-24] MEDS: LOW STRENGTH ASPIRIN 81 MG PO (09:04)
[2025-02-24] MEDS: TOPROL XL 25 MG PO (09:04)
[2025-02-24] MEDS: TAPAZOLE 5 MG PO (09:04)
[2025-02-24] MEDS: ZESTRIL 2.5 MG PO (09:04)
[2025-02-24] MEDS: KEPPRA 500 MG PO ×2 (09:04→20:05)
[2025-02-24 09:42] LABS: ALT (SGPT) 21 U/L (0-35); AST (SGOT) 21 U/L (14-36); Albumin 3.5 g/dl (3.5-5.0); Alkaline Phosphatase 81 U/L (38-126); Blood Urea Nitrogen 35 mg/dl (7-17); Calcium 8.8 mg/dl (8.4-10.2); Carbon Dioxide 30 mmol/L (22-30); Chloride 106 mmol/L (98-107); Estimated Creatinine Clearance 66 ml/min; Glucose 102 mg/dl (70-99); Potassium 3.6 mmol/L (3.5-5.1); Sodium 138 mmol/L (135-145); Total Protein 5.9 g/dl (6.3-8.2); eGFR > 60.00
--- NOTE | 2025-02-24 10:59 | W.PN.CARDCBS ---
Addendum entered and electronically signed by Desirae Michael DO 02/24/25 17:51:
I saw and examined the patient.
The Ethyl Blender's note was reviewed and I agree with the note.
Comment: Patient seen and examined. No overnight events and patient has no complaints
GEN: NAD with expressive aphasia/Chronic right-sided weakness
HEENT: mmm. trach scar
LUNGS: CTA B/L, no wheezes/rales
CV: Reg, S1/S2, no murmur
ABD: soft, BS+, NT/ND
EXT: No edema
Plan:
Presented with shortness of breath found to have new cardiomyopathy with a EF 30-35% with apical dyskinesis, etiology unknown
- Plan for ischemic evaluation. Left/right heart catheterization once INR is less than 1.5. INR today 1.8�resume diet. Will plan for procedure on Tuesday 02/27
- Despite multiple attempts to obtain prior records Coumadin indication remains unclear. Unclear prior history of PAF currently in sinus rhythm. Consider placement of loop to assess for arrhythmia
- IV heparin while off Coumadin
- She appears euvolemic after IV Lasix With an episode of hypotension/syncope on 02/23; Lasix discontinued
-proBNP 02/22 2040--> 02/23 295. No further Lasix at this time
- Goal-directed medical therapy to be initiated:
- Metoprolol tartrate was transition to metoprolol succinate 25 mg once daily.
- Lisinopril 2.5 mg started this admission with plan to transition to Entresto after [facility]
- Start SGLT2 inhibitor, Farxiga 10 mg daily prior to discharge.
- Continue aspirin 81 mg daily
- Started atorvastatin 20 mg daily. Lipid profile 02/23/2025: Total cholesterol 147, LDL 62, HDL 65. Triglycerides 101.
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 Continue Keppra.
-Patient is on Coumadin since her stroke managed by her primary care physician. Corinna and patient do not recall a history of atrial fibrillation however patient's son reported possible history of A-fib. Patient has never been recommended or
prescribed a NOAC. [facility] No atrial fibrillation this admission. Would consider for ILR either this admission or as an outpatient.
-Started atorvastatin
Original Note:
Today's Communication / Plan
-
INR remains elevated at 1.81.
Continue IV heparin while coumadin on hold.
No plan for [facility] today, ok to eat. Will tentatively plan for [facility] Thursday, 02/27
Continue medical therapy for CM with Toprol and lisinopril for now
Lasix on hold after syncope 02/23
Impression / Plan
-
PCP: Shy ARREDONDO
Air Analysis Engineering Technician: unknown
Assessment:
Presented with SOB
COPD exacerbation
Acute HFrEF
CM, EF 30-35%
h/o CVA with residual expressive aphasia
Prior tracheostomy in setting of above
History of seizure
on chronic coumadin managed by PCP, unclear reasons, possible afib
Hyperthyroidism
Former smoker
Echo 02/21/2025: TDS, EF 30 to 35%, diffusely hypokinetic LV with apical dyskinesis, trivial pericardial effusion, mild MR, no prior for comparison
Plan:
-Presented with shortness of breath, mostly with exertion. Admitted with acute heart failure exacerbation, proBNP 2039.
-Echo 02/21/2025 showed EF 30 to 35%, suspected to be new.
-Diuresing with IV lasix this admission, however had syncopal episode w/ hypotension on 02/23, so lasix now on hold.
-Weight up to 198 lbs on 02/24. Creat stable at 1.0. Continue to follow. If BP stable, could consider resuming lasix.
-With cardiomyopathy on echo which is suspected to be new, plan is for [facility] once INR < 1.5.
-Coumadin on hold w/ last dose 02/21. INR in AM 02/24 1.81. Continue IV Heparin.
-Remains chest pain free. Troponin in negative range this admission.
-Continue medical therapy for CM. Now on lisinopril 2.5 mg daily and Toprol 25 mg daily, both new this admission.
-90 Day supplies of both Entresto and Farxiga appear to be affordable based on CM note. Would consider transitioning lisinopril to Entresto and starting Farxiga after [facility].
-Unclear if patient has history of afib. Known history of CVA, on chronic Coumadin, however PCP note did not mention known history of A-fib. Unknown internet manager. Called [facility] at [facility] to see if patient was previously seen there.
Education And Development Manager noted patient has not been seen there, but reported that from what she could see, patient was seen by Dr. Lara at [facility]. [facility], but sales representative business courses there stated they have no record of patient being
seen previously. Awaiting records from [facility].
-Continue aspirin 81mg daily, lipitor 20mg daily. LDL 62
-K 3.6. Will replete.
Progress Note - Air Analysis Engineering Technician
Subjective
Date of Service: February 24, 2025
No chest pain.
Objective
Labs:
02/24/25 08:19
02/24/25 08:19
Labs
Hgb 13.5 g/dL (12.0-16.0) 02/24/25 08:19
Hct 41.1 % (37.0-47.0) 02/24/25 08:19
Plt Count 203 10^3/uL (130-400) 02/24/25 08:19
PT 21.1 Sec (11.4-14.6) H 02/24/25 08:19
INR 1.81 02/24/25 08:19
APTT 102.0 Sec (23.4-35.0) H 02/24/25 08:19
Sodium 138 mmol/L (135-145) 02/24/25 08:19
Potassium 3.6 mmol/L (3.5-5.1) 02/24/25 08:19
BUN 35 mg/dl (7-17) H 02/24/25 08:19
Creatinine 1.0 mg/dL (0.6-1.0) 02/24/25 08:19
Glucose 102 mg/dl (70-99) H 02/24/25 08:19
Troponins
02/21/25 02/21/25 02/23/25
11:50 17:52 15:10
Troponin I < 0.012 D Cancelled < 0.012
02/23/25
20:54
Troponin I < 0.012
Vital Signs and I&O:
Vital Signs
Temp Pulse Resp BP Pulse Ox
97.3 F 66 18 137/73 96
02/24/25 07:00 02/24/25 07:00 02/24/25 07:00 02/24/25 07:00 02/24/25 07:00
Vital Signs
Temp Pulse Resp BP Pulse Ox
97.3 F 66 18 137/73 96
02/24/25 07:00 02/24/25 07:00 02/24/25 07:00 02/24/25 07:00 02/24/25 07:00
Intake & Output
02/22/25 02/23/25 02/24/25 02/25/25
06:59 06:59 06:59 06:59
Intake Total 200 / 200 570 / 570
Output Total 700 / 700
Balance -500 / -500 570 / 570
Physical Exam
Physical Exam
GEN: No distress, awake, alert, oriented x3. with expressive aphasia at times
HEENT: supple, anicteric, mmm
LUNGS: CTA B/L, no wheezes/rales
CV: Reg, S1/S2, no murmur
EXT: No cyanosis, clubbing, edema
NEURO: Gross non-focal
SKIN: Warm, pink, dry. No rash
[2025-02-24 11:00] VITALS: BP 132/76
[2025-02-24] MEDS: KCL 40 MEQ PO (11:46)
--- NOTE | 2025-02-24 13:42 | W.PN.HOSP.TC ---
Today's Communication/Plan
-
hep ggt
GDMT
Await INR to be <1.5, tentative plan for [facility] 02/27
Assessment / Plan
Assessment / Plan
Physical Exam
General: Other (59y F in mild distress due to dyspnea.)
HEENT: Moist mucous membranes, PERRLA and Other (Thick neck. Tracheostomy scar.)
Respiratory: Clear; No Wheezes, Rales or Rhonchi
Cardiac: S1/S2 and Irregular Rhythm; No Murmur
GI: Soft, Non Tender, Non Distended and Normal Bowel Sounds
Musculoskeletal: No Clubbing, No Cyanosis and No Edema
Neuro: AO x 3 and Other (R sided weakness. Expressive aphasia.)
A/P: Patient is a 59y F with PMH significant for CVA with R hemiparesis / aphasia and A-Fib who presents to ED complaining of SOB.
Subjective Dyspnea
#Acute HFrEF
� S/p IV diuresis, hold after episode of Syncope and mild BOGDAN that now resolved
� Monitor Daily weights, I's and O's
� Cardiology consulted
� Switch Lopressor to Toprol
- Lisinopril; Would consider transitioning lisinopril to Entresto and starting Farxiga eventually
� TSH 1.5
� Troponins negative
� GDMT as per cardiology, anticipate initiating Entresto
� Heart cath versus once INR less than 1.5; Plan 02/27
#BOGDAN
-resolved
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
- Stable. No new focal deficits.
- Patient is capable of communication albeit with some difficulty.
�hold Coumadin for [facility]
-On Hep ggt
� No aspirin although on Coumadin
� Follow-up outpatient
� Follow LDL: 62
Atrial Fibrillation - Unknown Type
- Stable. Continue Coumadin and follow daily INR / adjust as needed.
- Switch to Toprol
� Patient has palpitations times, will require outpatient monitor
#Seizures
� Continue Keppra
DVT Prophylaxis: On Coumadin
Code Status: Full
Anticipated Discharge: > 48 hours
Subjective/Interval History
-
Date of Service: February 24, 2025
had episode of syncope while diuresing yesterday
Objective Data
-
Labs:
Laboratory Results
02/24/25 02/24/25
08:19 14:30
WBC 6.6
Hgb 13.5
Hct 41.1
Plt Count 203
PT 21.1 H
INR 1.81
APTT 102.0 H Pending
Sodium 138
Potassium 3.6
Chloride 106
Carbon Dioxide 30
BUN 35 H
Creatinine 1.0
Glucose 102 H
Calcium 8.8
Total Bilirubin 0.6
AST 21
ALT 21
Alkaline Phosphatase 81
Vital Signs:
Vital Signs
Temp Pulse Resp BP Pulse Ox
97.6 F 64 18 132/76 98
02/24/25 11:00 02/24/25 11:00 02/24/25 11:00 02/24/25 11:00 02/24/25 11:00
I&O
02/23/25 02/24/25 02/25/25
06:59 06:59 06:59
Intake Total 570 / 570
Balance 570 / 570
Review of Systems
-
History Source: Patient
All other systems: Not reviewed unless documented
Data Reviewed
-
Medical Tests (Nuc Med, Echo etc): Report Reviewed by me
Labs: Labs Reviewed by me
--- NOTE | 2025-02-24 14:15 | PN.CDI ---
CDI
- -
CDI:
Physician Documentation Request
Admit Date: 02/22/25 15:55
Dear Doctor Fei
Patient presented with dyspnea and heart failure.
Cardiology notes include COPD exacerbation.
Please indicate in your progress notes if you are in agreement that the above diagnosis is valid for this patient:
____ - COPD exacerbation is a valid diagnosis (Please include it in your progress notes)
____ - COPD exacerbation is not a valid diagnosis for this patient
____ - Other
Use of terms such as suspected, likely, concern for, or probable are acceptable for a diagnosis that is being evaluated, monitored or treated as if it exists and can be coded in the inpatient setting, when documented at the time of discharge.
Thank you,
Aspen Landa RN, BSN
CDI Specialist
tiger text
Please use your independent medical judgment in providing your response.
--- NOTE | 2025-02-24 14:26 | CM ---
Addendum entered by Denise Anglin 02/24/25 14:49:
[facility]
Report: [phone]

Original Note:
Reviewed chart. Met with pt and family member Corinna. Medication adjustments are being made. Pt [facility] for her home care agency. She is known to them. Will make referral. CC planned for 02/27/25
Plan: Home with [facility]
[2025-02-24 14:41] LABS: APTT 96.3 Sec (23.4-35.0)
[2025-02-24 15:00] VITALS: BP 140/67
[2025-02-24] MEDS: LIPITOR 20 MG PO (17:32)
[2025-02-24 19:27] VITALS: BP 135/72
[2025-02-24] MEDS: HEPARIN 25000 UNITS/250 ML IV (21:38)
[2025-02-24 23:17] VITALS: BP 136/65
[2025-02-25] VITALS (7 sets, daily range): BP systolic 110–164; BP diastolic 58–91; BMI 32.5
--- NOTE | 2025-02-25 05:05 | PTCARENOTE ---
At 0455, pt rings as she needs to go to the bathroom. I offer to take her, but sitting at the side of the bed, she states that she doesn't feel good. Pt states that has started feeling lightheaded/dizzy while laying in bed that started about 15 min
prior. This RN took a set of VS (T97.2, O296, BP 131/82, HR70, R18). Pt also stated that she felt cold so this RN brought her a warm blanket. Pt states she doesn't really need to be and would like to lay down to see if she will feel better. This RN
ensured pt had her call joshi and instructed to pt to ring if feeling persists or worsens. DRIVING SCHOOL INSTRUCTOR, So Jose Prado, notified - DRIVING SCHOOL INSTRUCTOR instructed for pt to be bedrest.
[2025-02-25] MEDS: SENOKOT 8.6 MG PO (05:56)
--- NOTE | 2025-02-25 06:21 | PTCARENOTE ---
This RN noticed pt has bruising, edema, and mild pain at right forearm IV site of heparin gtt administration. This RN switched Heparin gtt to left forearm IV site. Rt FR IV left in as still has good blood return and flushes well.
[2025-02-25] MEDS: TOPROL XL 25 MG PO (07:26)
[2025-02-25] MEDS: LOW STRENGTH ASPIRIN 81 MG PO (07:26)
[2025-02-25] MEDS: MIRALAX 17 GRAMS PO (07:26)
[2025-02-25] MEDS: ZESTRIL 2.5 MG PO (07:26)
[2025-02-25] MEDS: KEPPRA 500 MG PO ×2 (07:26→21:28)
[2025-02-25] MEDS: TAPAZOLE 5 MG PO (07:26)
[2025-02-25 07:55] LABS: Hematocrit 39.5 % (37.0-47.0); Hemoglobin 13.0 g/dL (12.0-16.0); Mean Corp Hgb Conc. 32.9 g/dL (33.0-37.0); Mean Corpuscular Volume 91.0 fL (81.0-99.0); Platelet Count 216 10^3/uL (130-400); Red Cell Dist. Width 13.3 % (11.5-14.5)
[2025-02-25 07:59] LABS: APTT 75.6 Sec (23.4-35.0)
[2025-02-25 08:48] LABS: ALT (SGPT) 21 U/L (0-35); AST (SGOT) 22 U/L (14-36); Albumin 3.5 g/dl (3.5-5.0); Alkaline Phosphatase 84 U/L (38-126); Blood Urea Nitrogen 25 mg/dl (7-17); Calcium 8.9 mg/dl (8.4-10.2); Carbon Dioxide 26 mmol/L (22-30); Chloride 106 mmol/L (98-107); Estimated Creatinine Clearance 73 ml/min; Glucose 97 mg/dl (70-99); Magnesium 2.2 mg/dl (1.6-2.3); Potassium 4.5 mmol/L (3.5-5.1); Sodium 136 mmol/L (135-145); Total Protein 5.8 g/dl (6.3-8.2); eGFR > 60.00
[2025-02-25 10:03] LABS: INR 1.40; PT 17.5 Sec (11.4-14.6)
--- NOTE | 2025-02-25 10:21 | W.PN.CARDCBS ---
Addendum entered and electronically signed by Eduardo Fonseca MD 02/25/25 12:30:
I saw and examined the patient.
The CATCHER HELPER or PA's note was reviewed and I agree with the note.
Comment: General: Well developed, well nourished in NAD.
Neck: Supple, no JVD, HJR, carotids +2 B/L, no bruits bilaterally.
Heart: Non displaced PMI, RRR, no murmurs, No S3, S4, no rubs.
Lungs: Scattered rhonchi at the bases
Extremities: No clubbing, cyanosis or edema bilaterally.
Neuro: Grossly nonfocal, awake, alert and oriented x3.
Coumadin on hold for left heart catheterization on Tuesday 02/27. Will start baby aspirin daily in case stent is required. Eventual Entresto and Farxiga. Lasix on hold with hypotension earlier in admission
Original Note:
Today's Communication / Plan
-
INR 1.4, cont IV Heparin with plan for [facility] on 02/27.
Impression / Plan
-
PCP: Shy ARREDONDO
Volunteer Fire Fighter: unknown
Assessment:
Presented with SOB
COPD exacerbation
Acute HFrEF
CM, EF 30-35%
h/o CVA with residual expressive aphasia
Prior tracheostomy in setting of above
History of seizure
on chronic coumadin managed by PCP, unclear reasons, possible afib
Hyperthyroidism
Former smoker
syncopal epiode 02/23 with BP 80s/
Echo 02/21/2025: TDS, EF 30 to 35%, diffusely hypokinetic LV with apical dyskinesis, trivial pericardial effusion, mild MR, no prior for comparison
Plan:
-Presented with shortness of breath, mostly with exertion. Admitted with acute heart failure exacerbation, proBNP 2039.
-Echo 02/21/2025 showed EF 30 to 35%, suspected to be new.
-Diuresing with IV lasix this admission, however had syncopal episode w/ hypotension on 02/23, so lasix now on hold.
-Weight down 3 lbs overnight to 195 lbs. Was 194 on admission. Creat stable at 0.9 after bump up to 1.4 (02/23).
-off O2
-telem personally reviewed: SB/SR 52-84 with PVCs
-With cardiomyopathy on echo which is suspected to be new, plan is for [facility] once INR < 1.5. Fortanately, INR 1.4 today 02/25. Plan for [facility] Mon 02/27.
-Coumadin on hold w/ last dose 02/21. INR in AM 02/25 1.4. Continue IV Heparin.
-Continue medical therapy for CM. Now on lisinopril 2.5 mg daily and Toprol 25 mg daily, both new this admission. BPs variable, could consider uptitration of meds but with some lower BPs and syncopal episode in setting of hypotension 02/23,will hold
off for now
-90 Day supplies of both Entresto and Farxiga appear to be affordable based on CM note. Would consider transitioning lisinopril to Entresto and starting Farxiga after LHC.
-Remains chest pain free. Troponin in negative range this admission.
-Unclear if patient has history of afib. Known history of CVA, on chronic Coumadin, however PCP note did not mention known history of A-fib. Unknown dot net developer. Called [facility] at [facility] to see if patient was previously seen there.
Junior Linux Systems Administrator noted patient has not been seen there, but reported that from what she could see, patient was seen by Dr. Lara at [facility]. [facility], but veterans employment representative there stated they have no record of patient being
seen previously. Awaiting records from [facility].
-Continue aspirin 81mg daily, lipitor 20mg daily. LDL 62
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 Continue Keppra.
-Patient is on Coumadin since her stroke managed by her primary care physician. Corinna and patient do not recall a history of atrial fibrillation however patient's son reported possible history of A-fib. Patient has never been recommended or
prescribed a NOAC.
-Could consider for ILR either this admission or as an outpatient.
-Started atorvastatin
Progress Note - Volunteer Fire Fighter
Subjective
Date of Service: February 25, 2025
off O2
walked this morning - no CP or SOB
had episode dizziness when lying in bed last night- no events on telem
Objective
Labs:
02/25/25 06:34
02/25/25 06:34
Labs
Hgb 13.0 g/dL (12.0-16.0) 02/25/25 06:34
Hct 39.5 % (37.0-47.0) 02/25/25 06:34
Plt Count 216 10^3/uL (130-400) 02/25/25 06:34
PT 17.5 Sec (11.4-14.6) H 02/25/25 06:34
INR 1.40 02/25/25 06:34
APTT 75.6 Sec (23.4-35.0) H 02/25/25 06:34
Sodium 136 mmol/L (135-145) 02/25/25 06:34
Potassium 4.5 mmol/L (3.5-5.1) 02/25/25 06:34
BUN 25 mg/dl (7-17) H 02/25/25 06:34
Creatinine 0.9 mg/dL (0.6-1.0) 02/25/25 06:34
Glucose 97 mg/dl (70-99) 02/25/25 06:34
Troponins
02/23/25 02/23/25
15:10 20:54
Troponin I < 0.012 < 0.012
Vital Signs and I&O:
Vital Signs
Temp Pulse Resp BP Pulse Ox
97.3 F 64 18 164/91 99
02/25/25 07:00 02/25/25 07:00 02/25/25 07:00 02/25/25 07:00 02/25/25 07:00
Vital Signs
Temp Pulse Resp BP Pulse Ox
97.3 F 64 18 164/91 99
02/25/25 07:00 02/25/25 07:00 02/25/25 07:00 02/25/25 07:00 02/25/25 07:00
Intake & Output
02/23/25 02/24/25 02/25/25 02/26/25
06:59 06:59 06:59 06:59
Intake Total 570 / 570 1548 / 1548
Balance 570 / 570 1548 / 1548
Physical Exam
Physical Exam
GEN: No distress, awake, Ox3
HEENT: supple, anicteric, mmm
LUNGS: CTA, no wheezes/rales
CV: Reg, S1/S2, 1/6 syst LSB, no murmur
ABD: soft, BS+, NT/ND
EXT: No edema
NEURO: Gross non-focal
SKIN: No rash
[2025-02-25] MEDS: CITROMA 300 ML PO (12:59)
--- NOTE | 2025-02-25 14:07 | W.PN.HOSP.TC ---
Addendum entered and electronically signed by Karl Enamorado MD 02/25/25 15:46:
Not COPD Exacerbation
Original Note:
Today's Communication/Plan
-
cont hep ggt
asa
LHC thursday
Assessment / Plan
Assessment / Plan
Physical Exam
General: Other (59y F in mild distress due to dyspnea.)
HEENT: Moist mucous membranes, PERRLA and Other (Thick neck. Tracheostomy scar.)
Respiratory: Clear; No Wheezes, Rales or Rhonchi
Cardiac: S1/S2 and Irregular Rhythm; No Murmur
GI: Soft, Non Tender, Non Distended and Normal Bowel Sounds
Musculoskeletal: No Clubbing, No Cyanosis and No Edema
Neuro: AO x 3 and Other (R sided weakness. Expressive aphasia.)
A/P: Patient is a 59y F with PMH significant for CVA with R hemiparesis / aphasia and A-Fib who presents to ED complaining of SOB.
Subjective Dyspnea
#Acute HFrEF
� S/p IV diuresis, hold after episode of Syncope and mild BOGDAN that now resolved
� Monitor Daily weights, I's and O's
� Cardiology consulted
� Switch Lopressor to Toprol
- Lisinopril; Would consider transitioning lisinopril to Entresto and starting Farxiga eventually
� TSH 1.5
� Troponins negative
� GDMT as per cardiology, anticipate initiating Entresto
� Heart cath versus once INR less than 1.5; Plan 02/27
-Start ASA in case stent is required
#BOGDAN
-resolved
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
- Stable. No new focal deficits.
- Patient is capable of communication albeit with some difficulty.
�hold Coumadin for [facility]
-On Hep ggt
� No aspirin although on Coumadin
� Follow-up outpatient
� Follow LDL: 62
Atrial Fibrillation - Unknown Type
- Stable. Continue Coumadin and follow daily INR / adjust as needed.
- Switch to Toprol
� Patient has palpitations times, will require outpatient monitor
#Seizures
� Continue Keppra
DVT Prophylaxis: On Coumadin
Code Status: Full
Anticipated Discharge: > 48 hours
Subjective/Interval History
-
Date of Service: February 25, 2025
no acute events
Objective Data
-
Labs:
Laboratory Results
02/25/25
06:34
WBC 7.7
Hgb 13.0
Hct 39.5
Plt Count 216
PT 17.5 H
INR 1.40
APTT 75.6 H
Sodium 136
Potassium 4.5
Chloride 106
Carbon Dioxide 26
BUN 25 H
Creatinine 0.9
Glucose 97
Calcium 8.9
Total Bilirubin 0.6
AST 22
ALT 21
Alkaline Phosphatase 84
Vital Signs:
Vital Signs
Temp Pulse Resp BP Pulse Ox
97.9 F 62 18 121/58 97
02/25/25 11:00 02/25/25 11:00 02/25/25 11:00 02/25/25 11:00 02/25/25 11:00
I&O
02/24/25 02/25/25 02/26/25
06:59 06:59 06:59
Intake Total 570 / 570 1548 / 1548
Balance 570 / 570 1548 / 1548
Review of Systems
-
History Source: Patient
All other systems: Not reviewed unless documented
Data Reviewed
-
Medical Tests (Nuc Med, Echo etc): Report Reviewed by me
Labs: Labs Reviewed by me
[2025-02-25] MEDS: LIPITOR 20 MG PO (17:06)
[2025-02-26] MEDS: HEPARIN 25000 UNITS/250 ML IV (01:16)
[2025-02-26 02:34] VITALS: BMI 32.5
[2025-02-26 06:15] VITALS: BMI 32.5
[2025-02-26 07:00] VITALS: BP 139/61
[2025-02-26] MEDS: KEPPRA 500 MG PO ×2 (08:12→20:40)
[2025-02-26] MEDS: LOW STRENGTH ASPIRIN 81 MG PO (08:12)
[2025-02-26] MEDS: TAPAZOLE 5 MG PO (08:12)
[2025-02-26] MEDS: MIRALAX PO (08:12)
[2025-02-26] MEDS: ZESTRIL 2.5 MG PO (08:14)
[2025-02-26] MEDS: TOPROL XL 25 MG PO (08:14)
[2025-02-26 09:03] LABS: Hematocrit 42.6 % (37.0-47.0); Hemoglobin 14.0 g/dL (12.0-16.0); Mean Corp Hgb Conc. 32.9 g/dL (33.0-37.0); Mean Corpuscular Volume 92.8 fL (81.0-99.0); Platelet Count 222 10^3/uL (130-400); Red Cell Dist. Width 13.5 % (11.5-14.5)
[2025-02-26 09:11] LABS: APTT 74.1 Sec (23.4-35.0)
[2025-02-26 09:29] LABS: ALT (SGPT) 32 U/L (0-35); AST (SGOT) 33 U/L (14-36); Albumin 4.0 g/dl (3.5-5.0); Alkaline Phosphatase 104 U/L (38-126); Blood Urea Nitrogen 21 mg/dl (7-17); Calcium 8.7 mg/dl (8.4-10.2); Carbon Dioxide 28 mmol/L (22-30); Chloride 101 mmol/L (98-107); Estimated Creatinine Clearance 73 ml/min; Glucose 98 mg/dl (70-99); Magnesium 2.4 mg/dl (1.6-2.3); Potassium 4.3 mmol/L (3.5-5.1); Sodium 137 mmol/L (135-145); Total Protein 6.4 g/dl (6.3-8.2); eGFR > 60.00
[2025-02-26 11:00] VITALS: BP 150/81
--- NOTE | 2025-02-26 14:01 | W.PN.HOSP.TC ---
Today's Communication/Plan
-
cont hep ggt
asa
LHC thursday
Assessment / Plan
Assessment / Plan
Physical Exam
General: Other (59y F in mild distress due to dyspnea.)
HEENT: Moist mucous membranes, PERRLA and Other (Thick neck. Tracheostomy scar.)
Respiratory: Clear; No Wheezes, Rales or Rhonchi
Cardiac: S1/S2 and Irregular Rhythm; No Murmur
GI: Soft, Non Tender, Non Distended and Normal Bowel Sounds
Musculoskeletal: No Clubbing, No Cyanosis and No Edema
Neuro: AO x 3 and Other (R sided weakness. Expressive aphasia.)
A/P: Patient is a 59y F with PMH significant for CVA with R hemiparesis / aphasia and A-Fib who presents to ED complaining of SOB.
Subjective Dyspnea
#Acute HFrEF
� S/p IV diuresis, hold after episode of Syncope, hypotension and mild BOGDAN that now resolved
� Monitor Daily weights, I's and O's
� Cardiology consulted
� Switch Lopressor to Toprol
- Lisinopril; Would consider transitioning lisinopril to Entresto and starting Farxiga eventually
� TSH 1.5
� Troponins negative
� GDMT as per cardiology, anticipate initiating Entresto
� Heart cath versus once INR less than 1.5; Plan 02/27
-Start ASA in case stent is required
#BOGDAN
-resolved
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
- Stable. No new focal deficits.
- Patient is capable of communication albeit with some difficulty.
�hold Coumadin for [facility]
-On Hep ggt
� No aspirin although on Coumadin
� Follow-up outpatient
� Follow LDL: 62
Atrial Fibrillation - Unknown Type
- Stable. Continue Coumadin and follow daily INR / adjust as needed.
- Switch to Toprol
� Patient has palpitations times, will require outpatient monitor
#Seizures
� Continue Keppra
DVT Prophylaxis: On Coumadin
Code Status: Full
Anticipated Discharge: 24 - 48 hours
Subjective/Interval History
-
Date of Service: February 26, 2025
No acute events overnight, ambulating
Objective Data
-
Labs:
Laboratory Results
02/26/25
06:47
WBC 7.9
Hgb 14.0
Hct 42.6
Plt Count 222
APTT 74.1 H
Sodium 137
Potassium 4.3
Chloride 101
Carbon Dioxide 28
BUN 21 H
Creatinine 0.9
Glucose 98
Calcium 8.7
Total Bilirubin 0.6
AST 33
ALT 32
Alkaline Phosphatase 104
Vital Signs:
Vital Signs
Temp Pulse Resp BP Pulse Ox
97.9 F 72 18 150/81 97
02/26/25 11:00 02/26/25 11:00 02/26/25 11:00 02/26/25 11:00 02/26/25 11:00
I&O
02/25/25 02/26/25 02/27/25
06:59 06:59 06:59
Intake Total 1548 / 1548 2400 / 2400
Balance 1548 / 1548 2400 / 2400
Review of Systems
-
History Source: Patient
All other systems: Not reviewed unless documented
Data Reviewed
-
Diagnostic Radiology: Report Reviewed by me
CT Scan: Report Reviewed by me
Medical Tests (Nuc Med, Echo etc): Report Reviewed by me
Labs: Labs Reviewed by me
[2025-02-26 15:00] VITALS: BP 133/67
[2025-02-26] MEDS: LIPITOR 20 MG PO (17:11)
--- NOTE | 2025-02-26 18:30 | PTCARENOTE ---
Patient will be NPO after midnight in preparation for cardiac cath 02/27. Heparin drip rate is unchanged from 9ml/hr; therapeutic range. Pt reports no complaints at this time. Plan of care ongoing.
[2025-02-26 19:30] VITALS: BP 97/65
[2025-02-26 23:21] VITALS: BP 113/48
[2025-02-27] VITALS (14 sets, daily range): BP systolic 92–158; BP diastolic 46–90; BMI 32.4
[2025-02-27] MEDS: HEPARIN 25000 UNITS/250 ML IV ×2 (03:57→22:12)
[2025-02-27 08:22] LABS: Hematocrit 40.1 % (37.0-47.0); Hemoglobin 13.4 g/dL (12.0-16.0); Mean Corp Hgb Conc. 33.4 g/dL (33.0-37.0); Mean Corpuscular Volume 91.3 fL (81.0-99.0); Platelet Count 227 10^3/uL (130-400); Red Cell Dist. Width 13.5 % (11.5-14.5)
[2025-02-27 08:26] LABS: APTT 71.1 Sec (23.4-35.0)
--- NOTE | 2025-02-27 08:38 | ITS.CL.CATH ---
Tank Setter - Catheterization
Cardiac Catheterization
Procedure Report:
LEFT HEART CATHETERIZATION
Date of Procedure: February 27, 2025
Referring: Dr. Eduardo Fonseca
PROCEDURES:
1. Left heart catheterization, coronary angiogram.
2. Moderate sedation.
INDICATION: New cardiomyopathy
ACCESS: Right radial artery, 6Fr. sheath, under US guidance.
HEMODYNAMICS : (mmHg)
AO (s/d) : 114/60
LVEDP : 8
No significant gradient across the aortic valve to suggest aortic stenosis.
CORONARY FINDINGS
Dominance: Right
Left Main Trunk (LMT): Large caliber vessel that gives rise to the LAD, RI and LCx branches and is free of angiographic disease.
Left Anterior Descending Artery (LAD): Large caliber vessel that gives off 2 major diagonal branches as it courses along the anterior inter-ventricular groove before wrapping around the cardiac apex. The LAD and its branches are free of
angiographic disease.
Ramus Intermedius (RI): Small to medium caliber ramus intermedius branch with minimal luminal irregularities.
Left Circumflex Artery (LCx): Large caliber vessel that gives off 1 major obtuse marginal (OM) branch as it courses along the atrio-ventricular (AV) groove. The LCx and its branches are free of angiographic disease.
Right Coronary Artery (RCA): Large caliber dominant vessel that gives rise to the posterior descending artery (RPDA) and postero-lateral ventricular (RPLV) branches distally. The RCA and its branches are free of angiographic disease.
SEDATION: 27 minutes of procedural sedation was utilized. IV Midazolam and IV Fentanyl were administered. An independent medical office clerk was present to assist with and help manage the patient's level of consciousness and physiologic status.
RADIATION SUMMARY: Fluoro Time (min): 4.5, Dose (mGy): 266.13, DAP (Gy.cm2) : 18.1
Closure Device: There were no immediate intra-procedural complications. The sheath was pulled in the labor delivery rn and a vascular-band applied to the right wrist for radial artery hemostasis using the patent hemostasis technique.
CONCLUSIONS
1. No obstructive coronary artery disease.
2. LVEDP of 8 mmHg.
RECOMMENDATIONS
1. Wean radial band per protocol. Monitor right hand perfusion and for bleeding from the radial site following removal of the vascular-band following trans-radial access.
2. Continue aggressive goal-directed medical therapy for nonischemic cardiomyopathy and risk factor modification for secondary CAD prevention.
3. Hydrate with normal saline to mitigate the risk of contrast-induced acute kidney injury.
4. Outpatient follow-up with cardiology.
5. Referral for outpatient cardiac rehab.
Octavia Dennis MD, FACC, [facility]
Copy to: Dr. Eduardo Fonseca
[2025-02-27] MEDS: TYLENOL 650 MG PO ×3 (09:38→22:04)
[2025-02-27] MEDS: TOPROL XL 25 MG PO (09:38)
[2025-02-27] MEDS: LOW STRENGTH ASPIRIN 81 MG PO (09:38)
[2025-02-27] MEDS: ZESTRIL 2.5 MG PO (09:38)
[2025-02-27] MEDS: TAPAZOLE 5 MG PO (09:38)
[2025-02-27] MEDS: KEPPRA 500 MG PO ×2 (09:42→20:17)
--- NOTE | 2025-02-27 11:31 | CM ---
Addendum entered by Teressa Alba 02/27/25 16:00:
Prescription plan [facility], , Farxiga $139 per month and Jardiance $146 Per month.
Original Note:
Patient to return to home when stable, patient has been set up visiting nurse services at discharge.
[facility]
[phone]
--- NOTE | 2025-02-27 13:30 | W.PN.HOSP.TC ---
Today's Communication/Plan
-
IV diuresis monitoring renal function and weight
LHC planned
Off Coumadin on heparin bridge
Assessment / Plan
Assessment / Plan
Impression
Patient is a 59y F with PMH significant for CVA with R hemiparesis / aphasia and A-Fib who presents to ED complaining of SOB.
Acute CHF reduced EF
Cardiomyopathy with EF 30-35%
History of CVA with residual expressive aphasia
History of tracheostomy in the settings of acute CVA
Seizure disorder
Chronic anticoagulation with Coumadin, unknown reason, possible paroxysmal atrial fibrillation
Hypothyroidism on methimazole
Former smoker
Plan
Subjective Dyspnea
#Acute HFrEF
� S/p IV diuresis, hold after episode of Syncope, hypotension and mild BOGDAN that now resolved
� Monitor Daily weights, I's and O's
� Switch Lopressor to Toprol
- Lisinopril; Would consider transitioning lisinopril to Entresto and starting Farxiga eventually
� TSH 1.5
� Troponins negative
� GDMT as per cardiology, anticipate initiating Entresto
� Heart cath versus once INR less than 1.5; Plan 02/27
-Start ASA in case stent is required
#BOGDAN
-resolved
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
- Stable. No new focal deficits.
- Patient is capable of communication albeit with some difficulty.
�hold Coumadin for LHC
-On Hep ggt bridge
� No aspirin although on Coumadin
� Follow-up outpatient
� Follow LDL: 62
Possible history of Atrial Fibrillation - Unknown Type
- Stable. Continue Coumadin and follow daily INR / adjust as needed.
- Switch to Toprol
� Patient has palpitations times, will require outpatient monitor
#Seizures
� Continue Keppra
DVT Prophylaxis: On Coumadin
Code Status: Full
Anticipated Discharge: 24 - 48 hours
Subjective/Interval History
-
Date of Service: February 27, 2025
Objective Data
-
Labs:
Laboratory Results
02/27/25 02/27/25 02/27/25
07:52 07:53 15:30
WBC 7.4
Hgb 13.4
Hct 40.1
Plt Count 227
APTT 71.1 H Pending
Vital Signs:
Vital Signs
Temp Pulse Resp BP Pulse Ox
97.7 F 55 18 104/62 96
02/27/25 11:00 02/27/25 11:00 02/27/25 11:00 02/27/25 11:00 02/27/25 11:00
I&O
02/26/25 02/27/25 02/28/25
06:59 06:59 06:59
Intake Total 2400 / 2400 960 / 960
Balance 2400 / 2400 960 / 960
Physical Exam
-
General: Well Developed and No Apparent Distress
HEENT: Normocephalic, Atraumatic and Moist Mucous Membranes
Respiratory: Clear to Auscultation
Cardiac: Regular Rhythm and S1/S2; Negative Murmur, Rub or Gallop
GI: Soft, Nontender, Nondistended and Normal Bowel Sounds; Negative Organomegaly
Rectal: Deferred by Provider
Musculoskeletal: No Clubbing, No Cyanosis and No Edema
Skin: Negative Rash
Neuro: Nonfocal/Grossly Intact
[2025-02-27] MEDS: MIRALAX PO (13:58)
[2025-02-27] MEDS: LIPITOR 20 MG PO (18:29)
[2025-02-27] MEDS: COUMADIN 5 MG PO (18:29)
[2025-02-28 03:46] VITALS: BP 108/56
[2025-02-28 05:07] LABS: Hematocrit 40.1 % (37.0-47.0); Hemoglobin 13.3 g/dL (12.0-16.0); Mean Corp Hgb Conc. 33.2 g/dL (33.0-37.0); Mean Corpuscular Volume 92.2 fL (81.0-99.0); Platelet Count 219 10^3/uL (130-400); Red Cell Dist. Width 13.5 % (11.5-14.5)
[2025-02-28 05:25] LABS: INR 1.07; PT 14.3 Sec (11.4-14.6)
[2025-02-28 05:27] LABS: APTT 50.5 Sec (23.4-35.0)
[2025-02-28 05:34] LABS: Blood Urea Nitrogen 17 mg/dl (7-17); Calcium 8.9 mg/dl (8.4-10.2); Carbon Dioxide 28 mmol/L (22-30); Chloride 105 mmol/L (98-107); Estimated Creatinine Clearance 82 ml/min; Glucose 106 mg/dl (70-99); Potassium 4.2 mmol/L (3.5-5.1); Sodium 138 mmol/L (135-145); eGFR > 60.00
[2025-02-28 06:00] VITALS: BMI 32.6
[2025-02-28 07:00] VITALS: BP 148/82
[2025-02-28] MEDS: KEPPRA 500 MG PO ×2 (07:59→20:06)
[2025-02-28] MEDS: LOW STRENGTH ASPIRIN 81 MG PO (08:00)
[2025-02-28] MEDS: LASIX 40 MG PO (08:00)
[2025-02-28] MEDS: MIRALAX 17 GRAMS PO (08:00)
[2025-02-28] MEDS: TAPAZOLE 5 MG PO (08:00)
[2025-02-28] MEDS: ZESTRIL 2.5 MG PO (08:07)
[2025-02-28] MEDS: TOPROL XL 25 MG PO (08:08)
--- NOTE | 2025-02-28 10:13 | W.PN.CARDCBS ---
Today's Communication / Plan
-
She appears euvolemic and can stop IV diuresis and continue with oral lasix.
Monitor daily wts.
Cr stable.
She still has some subjective dyspnea but it is much improved. Her cardiac catheterization did not show any obstructive CAD and was reviewed with her.
Continue medical therapy for nonischemic cardiomyopathy. Continue beta-adán. Will hold DAVE in anticipation of starting Entresto prior to discharge.
Start Farxiga.
Continue IV heparin to Coumadin bridge given history of CVA.
Coumadin 7.5 mg x 1 February 28.
Cant stop ASA now that she is back on Heparin bridge.
Impression / Plan
-
.
PCP: Shy ARREDONDO
Strategic Marketing Associate: unknown
Impression:
Presented with SOB
Acute HFrEF
CM, EF 30-35%
h/o CVA with residual expressive aphasia
Prior tracheostomy in setting of above
History of seizure
on chronic coumadin managed by PCP, unclear reasons, possible afib
Hyperthyroidism
Former smoker
syncopal epiode 02/23 with BP 80s/
Echo 02/21/2025: TDS, EF 30 to 35%, diffusely hypokinetic LV with apical dyskinesis, trivial pericardial effusion, mild MR, no prior for comparison
Cath Feb 27 2025:
LVEDP : 8
No significant gradient across the aortic valve to suggest aortic stenosis.
CORONARY FINDINGS
Dominance: Right
Left Main Trunk (LMT): Large caliber vessel that gives rise to the LAD, RI and LCx branches and is free of angiographic disease.
Left Anterior Descending Artery (LAD): Large caliber vessel that gives off 2 major diagonal branches as it courses along the anterior inter-ventricular groove before wrapping around the cardiac apex. The LAD and its branches are free of
angiographic disease.
Ramus Intermedius (RI): Small to medium caliber ramus intermedius branch with minimal luminal irregularities.
Left Circumflex Artery (LCx): Large caliber vessel that gives off 1 major obtuse marginal (OM) branch as it courses along the atrio-ventricular (AV) groove. The LCx and its branches are free of angiographic disease.
Right Coronary Artery (RCA): Large caliber dominant vessel that gives rise to the posterior descending artery (RPDA) and postero-lateral ventricular (RPLV) branches distally. The RCA and its branches are free of angiographic disease.
CONCLUSIONS
1. No obstructive coronary artery disease.
2. LVEDP of 8 mmHg.
Plan:
-Presented with shortness of breath, mostly with exertion. Admitted with acute heart failure exacerbation, proBNP 2039.
-Echo 02/21/2025 showed EF 30 to 35%, suspected to be subacute
She appears euvolemic and can stop IV diuresis and continue with oral lasix.
Monitor daily wts.
Cr stable.
She still has some subjective dyspnea but it is much improved. Her cardiac catheterization did not show any obstructive CAD and was reviewed with her.
Continue medical therapy for nonischemic cardiomyopathy. Continue beta-adán. Will hold DAVE in anticipation of starting Entresto prior to discharge.
Start Farxiga.
Continue IV heparin to Coumadin bridge given history of CVA.
Coumadin 7.5 mg x 1 February 28.
Cant stop ASA now that she is back on Heparin bridge.
Remains sinus rhythm. There is no clear history of atrial fibrillation although son mentioned atrial fibrillation. No documentation has been found of atrial fibrillation.
Continue Keppra for history of seizures.
Continue Lipitor.
Attempted to get records: Unknown commercial assistant. Called [facility] at [facility] to see if patient was previously seen there. Video Camera Operator noted patient has not been seen there, but reported that from what she could see, patient was seen by
[facility] at [facility] was then called, but practice representative there stated they have no record of patient being seen previously. Awaiting records from [facility].
Progress Note - Strategic Marketing Associate
Subjective
Date of Service: February 28, 2025
Patient seen and examined. No chest pain or shortness of breath.
Objective
Labs:
02/28/25 04:42
02/28/25 04:42
Labs
Hgb 13.3 g/dL (12.0-16.0) 02/28/25 04:42
Hct 40.1 % (37.0-47.0) 02/28/25 04:42
Plt Count 219 10^3/uL (130-400) 02/28/25 04:42
PT 14.3 Sec (11.4-14.6) 02/28/25 04:42
PT Cancelled 02/28/25 04:42
INR 1.07 02/28/25 04:42
INR Cancelled 02/28/25 04:42
APTT 50.5 Sec (23.4-35.0) H 02/28/25 04:42
Sodium 138 mmol/L (135-145) 02/28/25 04:42
Potassium 4.2 mmol/L (3.5-5.1) 02/28/25 04:42
BUN 17 mg/dl (7-17) 02/28/25 04:42
Creatinine 0.8 mg/dL (0.6-1.0) 02/28/25 04:42
Glucose 106 mg/dl (70-99) H 02/28/25 04:42
Vital Signs and I&O:
Vital Signs
Temp Pulse Resp BP Pulse Ox
98.1 F 66 16 148/82 100
02/28/25 07:00 02/28/25 07:00 02/28/25 07:00 02/28/25 07:00 02/28/25 07:00
Vital Signs
Temp Pulse Resp BP Pulse Ox
98.1 F 66 16 148/82 100
02/28/25 07:00 02/28/25 07:00 02/28/25 07:00 02/28/25 07:00 02/28/25 07:00
Intake & Output
02/26/25 02/27/25 02/28/25 03/01/25
06:59 06:59 06:59 06:59
Intake Total 2400 / 2400 960 / 960 1020 / 1020
Balance 2400 / 2400 960 / 960 1020 / 1020
Physical Exam
Physical Exam
General: No acute distress, AAOX3
Neck: Negative JVD
Heart: Regular, Negative S3 positive S1/S2, Negative S4, No murmur
Lungs: CTA b/l, negative wheezes/rales/rhonchi
Abd: Positive BS, NT/ND, neg rebound/rigidity/guarding
Ext: Negative cyanosis/clubbing/edema
Neuro: nonfocal, expressive aphasia
[2025-02-28 11:00] VITALS: BP 111/61
[2025-02-28 12:33] LABS: APTT 137.5 Sec (23.4-35.0)
--- NOTE | 2025-02-28 14:53 | W.PN.HOSP.TC ---
Today's Communication/Plan
-
Reinstate Coumadin
Adjust GDMT for cardiomyopathy
Discharge plan
Assessment / Plan
Assessment / Plan
Impression
Patient is a 59y F with PMH significant for CVA with R hemiparesis / aphasia and A-Fib who presents to ED complaining of SOB.
Acute CHF reduced EF
Cardiomyopathy with EF 30-35%
History of CVA with residual expressive aphasia
History of tracheostomy in the settings of acute CVA
Seizure disorder
Chronic anticoagulation with Coumadin, unknown reason, possible paroxysmal atrial fibrillation
Hypothyroidism on methimazole
Former smoker
Plan
Subjective Dyspnea
#Acute HFrEF
� S/p IV diuresis, hold after episode of Syncope, hypotension and mild BOGDAN that now resolved
� Monitor Daily weights, I's and O's
Left heart cath on 02/27 with no CAD
Optimize medical therapy for heart failure reduced EF/cardiomyopathy.
Continue metoprolol. Consider transition to Cardizem
Zestril had been discontinued for washout prior to initiation of Entresto
Consider/pricing SGLT2 inhibitor
#BOGDAN
-resolved
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
- Stable. No new focal deficits.
- Patient is capable of communication albeit with some difficulty.
-Reinstate Coumadin with heparin bridge
According to outpatient medical records patient was on anticoagulation secondary to thrombophilia, possibly APS with no option for NOAC
Possible history of Atrial Fibrillation - Unknown Type
- Stable. Continue Coumadin and follow daily INR / adjust as needed.
- Switch to Toprol
� Patient has palpitations times, will require outpatient monitor
#Seizures
� Continue Keppra
DVT Prophylaxis: On Coumadin
Code Status: Full
Anticipated Discharge: 24 - 48 hours
Subjective/Interval History
-
Date of Service: February 28, 2025
Objective Data
-
Labs:
Laboratory Results
02/28/25 02/28/25 02/28/25
04:42 04:42 04:42
WBC 7.6
Hgb 13.3
Hct 40.1
Plt Count 219
PT 14.3 Cancelled
INR 1.07 Cancelled
APTT 50.5 H
Sodium 138
Potassium 4.2
Chloride 105
Carbon Dioxide 28
BUN 17
Creatinine 0.8
Glucose 106 H
Calcium 8.9
02/28/25 02/28/25
12:07 19:45
WBC
Hgb
Hct
Plt Count
PT
INR
APTT 137.5 H Pending
Sodium
Potassium
Chloride
Carbon Dioxide
BUN
Creatinine
Glucose
Calcium
Vital Signs:
Vital Signs
Temp Pulse Resp BP Pulse Ox
98.1 F 69 17 111/61 97
02/28/25 11:00 02/28/25 11:00 02/28/25 11:00 02/28/25 11:00 02/28/25 11:00
I&O
02/27/25 02/28/25 03/01/25
06:59 06:59 06:59
Intake Total 960 / 960 1020 / 1020
Balance 960 / 960 1020 / 1020
Physical Exam
-
General: Well Developed and No Apparent Distress
HEENT: Normocephalic, Atraumatic and Moist Mucous Membranes
Respiratory: Clear to Auscultation
Cardiac: Regular Rhythm and S1/S2; Negative Murmur, Rub or Gallop
GI: Soft, Nontender, Nondistended and Normal Bowel Sounds; Negative Organomegaly
Rectal: Deferred by Provider
Musculoskeletal: No Clubbing, No Cyanosis and No Edema
Skin: Negative Rash
Neuro: Nonfocal/Grossly Intact
[2025-02-28 15:00] VITALS: BP 112/96
[2025-02-28] MEDS: LIPITOR 20 MG PO (17:15)
[2025-02-28] MEDS: COUMADIN 7.5 MG PO (17:15)
[2025-02-28 19:28] VITALS: BP 119/83
[2025-02-28] MEDS: HEPARIN 25000 UNITS/250 ML IV (20:06)
[2025-02-28] MEDS: TYLENOL 650 MG PO (20:15)
[2025-02-28 20:31] LABS: APTT 96.4 Sec (23.4-35.0)
[2025-02-28 23:44] VITALS: BP 102/56
--- NOTE | 2025-03-01 02:55 | DOWNTIME ---
There was a [employer] Client Schedule Maker Downtime on 03/01/2025 from 0100 to 03/01/2025 at 0235. Downtime documentation of patient's care, including medication administrations, has been reconciled in the electronic record per guidelines. Refer to the
patient's paper chart under the miscellaneous tab to see printed paper medication records and downtime forms.
[2025-03-01 03:41] VITALS: BP 104/60
[2025-03-01 03:50] LABS: APTT 103.3 Sec (23.4-35.0)
[2025-03-01 05:22] VITALS: BMI 32.4
[2025-03-01 07:00] VITALS: BP 136/86
[2025-03-01 07:23] LABS: INR 1.22; PT 16.0 Sec (11.4-14.6)
[2025-03-01] MEDS: LASIX 40 MG PO (09:42)
[2025-03-01] MEDS: TOPROL XL 25 MG PO (09:42)
[2025-03-01] MEDS: KEPPRA 500 MG PO ×2 (09:43→21:12)
[2025-03-01] MEDS: TAPAZOLE 5 MG PO (09:43)
[2025-03-01] MEDS: MIRALAX PO (09:43)
[2025-03-01] MEDS: LOW STRENGTH ASPIRIN 81 MG PO (09:43)
[2025-03-01 11:00] VITALS: BP 155/79
--- NOTE | 2025-03-01 12:33 | W.PN.CARDCBS ---
Addendum entered and electronically signed by Omari Orellana DO 03/01/25 14:59:
I saw and examined the patient.
The Embossing Machine Operator's note was reviewed and I agree with the note.
Comment:
Plan:
Her cardiac catheterization did not show any obstructive CAD
Continue medical therapy for nonischemic cardiomyopathy.
Continue IV heparin to Coumadin bridge. Goal INR 2-3
Coumadin 7.5 mg again today.
Transition to oral diuretic given LVEDP was 8 by last right heart cath.
If blood pressure remains stable, would start Entresto prior to discharge. Lisinopril has been stopped in anticipation of Entresto.
Continue Farxiga
Continue Toprol XL.
Continue attempts at getting records from [facility].
Outpatient follow-up to be arranged.
Original Note:
Today's Communication / Plan
-
Continue heparin to warfarin bridge with INR goal of 2-3
No documented history of atrial arrhythmia
LVEDP was 8 by [facility]HC and now transition to oral diuretic
If BP improves we will try to start Entresto prior to discharge
Starting Farxiga, ordered by me
Impression / Plan
-
PCP: Shy ARREDONDO
Administrative Law Judge: unknown
Impression:
Admitted with O[facility]LE 02/21/25
Acute HFrEF
NICM, EF 30-35% by echo 02/21/25
Nonobstructive CAD by cath 02/27/25
h/o CVA with residual expressive aphasia
Prior tracheostomy in setting of above
History of seizure
Chronic Coumadin managed by PCP, unclear reasons, possible Afib
Hyperthyroidism
Former smoker
Syncopal episode 02/23/25 with SBP 80s
Echo 02/21/2025: TDS, EF 30 to 35%, diffusely hypokinetic LV with apical dyskinesis, trivial pericardial effusion, mild MR, no prior for comparison
R/LHC 02/27/25: LVEDP 8, no obstructive CAD
Plan:
-Presented with shortness of breath, mostly with exertion. Admitted with acute heart failure exacerbation, proBNP 2039. Patient has not had previous cardiology care through the [facility] system and we called heavy truck mechanic that she thinks she may have
seen and they have no records on patient either
-Weight is down 7 lbs with Lasix 40 mg IV daily diuresis. Patient was not taking a diuretic prior to admission. Patient was transition to Lasix 40 mg PO daily starting 02/28/2025 after LVEDP was down to 8 by [facility] 02/27/2025
-Echo 02/21/2025 showed EF 30 to 35%
-Patient had nonselective CAD by [facility] 02/27/2025
-Outpatient dose of Lopressor was changed to Toprol XL 25 mg daily this admission
-Attempted to start lisinopril 2.5 mg daily this admission, but patient had hypotension and near syncope on 02/28/2025 so lisinopril stopped. As BP improves with transition to oral diuretic could consider an attempt at Entresto 24/26 mg BID
-Start Farxiga 10 mg daily, ordered by me 03/01/2025
-Cardiology called 2 different offices associated with [facility] and they have no record of following patient. Also called and requested records from [facility] in [place], [place] and await records, they have not arrived yet.
-Patient is chronically on warfarin after remote CVA, but patient is unsure what the cause of the CVA was. Cardiology obtained records from the PCP and it states that CVA may have been due to some other type of hematologic disease so it is unclear
if we can safely transition to DOAC. For now warfarin has been resumed and patient is on a heparin to warfarin bridge. INR is 1.2 on my review of labs 03/01/2025. Warfarin 7.5 mg ordered for 03/01/2025 PM. INR goal is 2-3, the patient does not
know how she usually gets her INRs checked. Patient reports her stepmother Corinna usually handles that for her. INRs managed by PCP office
-No documented atrial arrhythmia
Attempted to get records: Unknown heavy truck mechanic. Called [facility] at [facility] to see if patient was previously seen there. Sawmill Or Timber Yard Worker noted patient has not been seen there, but reported that from what she could see, patient was seen by
Marco at [facility]. [facility] was then called, but auto claim representative there stated they have no record of patient being seen previously. Awaiting records from [facility].
Progress Note - Administrative Law Judge
Subjective
Date of Service: March 01, 2025
She says she is doing very well up and walking the halls doing 5 laps at a time, no chest pain
Objective
Labs:
02/28/25 04:42
02/28/25 04:42
Labs
Hgb 13.3 g/dL (12.0-16.0) 02/28/25 04:42
Hct 40.1 % (37.0-47.0) 02/28/25 04:42
Plt Count 219 10^3/uL (130-400) 02/28/25 04:42
PT 16.0 Sec (11.4-14.6) H 03/01/25 06:03
INR 1.22 03/01/25 06:03
APTT 103.3 Sec (23.4-35.0) H 03/01/25 03:23
Sodium 138 mmol/L (135-145) 02/28/25 04:42
Potassium 4.2 mmol/L (3.5-5.1) 02/28/25 04:42
BUN 17 mg/dl (7-17) 02/28/25 04:42
Creatinine 0.8 mg/dL (0.6-1.0) 02/28/25 04:42
Glucose 106 mg/dl (70-99) H 02/28/25 04:42
Vital Signs and I&O:
Vital Signs
Temp Pulse Resp BP Pulse Ox
97.5 F 74 16 155/79 96
03/01/25 11:00 03/01/25 11:00 03/01/25 11:00 03/01/25 11:00 03/01/25 11:00
Vital Signs
Temp Pulse Resp BP Pulse Ox
97.5 F 74 16 155/79 96
03/01/25 11:00 03/01/25 11:00 03/01/25 11:00 03/01/25 11:00 03/01/25 11:00
Intake & Output
02/27/25 02/28/25 03/01/25 03/02/25
06:59 06:59 06:59 06:59
Intake Total 960 / 960 1020 / 1020 720 / 720
Balance 960 / 960 1020 / 1020 720 / 720
Physical Exam
Physical Exam
GEN: NAD. AAO x 3. Expressive aphasia
LUNGS: RA. No audible wheeze
CV: SR on telemetry.
EXT: No edema B/L
[2025-03-01 15:00] VITALS: BP 151/87
--- NOTE | 2025-03-01 15:25 | CM ---
Chart reviewed and patient to return to home when stable.
Plan; Home with [facility].
[facility]
[phone]
--- NOTE | 2025-03-01 15:36 | W.PN.HOSP.TC ---
Today's Communication/Plan
-
Optimization of GDMT for cardiomyopathy
Heparin to Coumadin bridge
Assessment / Plan
Assessment / Plan
Impression
Patient is a 59y F with PMH significant for CVA with R hemiparesis / aphasia and A-Fib who presents to ED complaining of SOB.
Acute CHF reduced EF
Cardiomyopathy with EF 30-35%
History of CVA with residual expressive aphasia
History of tracheostomy in the settings of acute CVA
Seizure disorder
Chronic anticoagulation with Coumadin, unknown reason, possible paroxysmal atrial fibrillation
Hypothyroidism on methimazole
Former smoker
Plan
Subjective Dyspnea
#Acute HFrEF
� S/p IV diuresis, hold after episode of Syncope, hypotension and mild BOGDAN that now resolved
� Monitor Daily weights, I's and O's
Left heart cath on 02/27 with no CAD
Optimize medical therapy for heart failure reduced EF/cardiomyopathy.
Continue metoprolol. Consider transition to Cardizem
Zestril had been discontinued for washout prior to initiation of Entresto
Consider/pricing SGLT2 inhibitor
#BOGDAN
-resolved
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
- Stable. No new focal deficits.
- Patient is capable of communication albeit with some difficulty.
-Reinstate Coumadin with heparin bridge
According to outpatient medical records patient was on anticoagulation secondary to thrombophilia, possibly APS with no option for NOAC
Possible history of Atrial Fibrillation - Unknown Type
- Stable. Continue Coumadin and follow daily INR / adjust as needed.
- Switch to Toprol
� Patient has palpitations times, will require outpatient monitor
#Seizures
� Continue Keppra
DVT Prophylaxis: On Coumadin
Code Status: Full
Anticipated Discharge: 24 - 48 hours
Subjective/Interval History
-
Date of Service: March 01, 2025
Objective Data
-
Labs:
Laboratory Results
03/01/25 03/01/25
03:23 06:03
PT 16.0 H
INR 1.22
APTT 103.3 H
Vital Signs:
Vital Signs
Temp Pulse Resp BP Pulse Ox
97.5 F 74 16 155/79 96
03/01/25 11:00 03/01/25 11:00 03/01/25 11:00 03/01/25 11:00 03/01/25 11:00
I&O
02/28/25 03/01/25 03/02/25
06:59 06:59 06:59
Intake Total 1020 / 1020 720 / 720
Balance 1020 / 1020 720 / 720
Physical Exam
-
General: Well Developed and No Apparent Distress
HEENT: Normocephalic, Atraumatic and Moist Mucous Membranes
Respiratory: Clear to Auscultation
Cardiac: Regular Rhythm and S1/S2; Negative Murmur, Rub or Gallop
GI: Soft, Nontender, Nondistended and Normal Bowel Sounds; Negative Organomegaly
Rectal: Deferred by Provider
Musculoskeletal: No Clubbing, No Cyanosis and No Edema
Skin: Negative Rash
Neuro: Nonfocal/Grossly Intact
[2025-03-01] MEDS: COUMADIN 7.5 MG PO (17:07)
[2025-03-01] MEDS: LIPITOR 20 MG PO (17:07)
[2025-03-01 19:31] VITALS: BP 116/70
[2025-03-01 23:24] VITALS: BP 104/62
[2025-03-01] MEDS: HEPARIN 25000 UNITS/250 ML IV (23:58)
[2025-03-02 03:39] VITALS: BP 119/72
[2025-03-02 04:44] VITALS: BMI 32.4
[2025-03-02 07:28] LABS: Hematocrit 42.1 % (37.0-47.0); Hemoglobin 13.9 g/dL (12.0-16.0); Mean Corp Hgb Conc. 33.0 g/dL (33.0-37.0); Mean Corpuscular Volume 91.5 fL (81.0-99.0); Platelet Count 228 10^3/uL (130-400); Red Cell Dist. Width 13.6 % (11.5-14.5)
[2025-03-02 07:32] LABS: INR 1.81; PT 21.5 Sec (11.4-14.6)
[2025-03-02 07:45] LABS: APTT 171.9 Sec (23.4-35.0)
[2025-03-02 07:50] VITALS: BP 122/71
[2025-03-02] MEDS: LASIX 40 MG PO (08:36)
[2025-03-02] MEDS: FARXIGA 10 MG PO (08:36)
[2025-03-02] MEDS: KEPPRA 500 MG PO ×2 (08:36→19:54)
[2025-03-02] MEDS: TAPAZOLE 5 MG PO (08:38)
[2025-03-02] MEDS: VENTOLIN NEBULES 2.5 MG INH (08:49)
[2025-03-02] MEDS: TOPROL XL 25 MG PO (09:09)
[2025-03-02] MEDS: MIRALAX PO (09:09)
[2025-03-02 11:15] VITALS: BP 131/80
--- NOTE | 2025-03-02 11:57 | CM ---
Chart reviewed and plan is to home when stable, with [facility].
Plan; Home with [facility].
[facility]
[phone]
[2025-03-02 13:40] LABS: APTT 129.5 Sec (23.4-35.0)
[2025-03-02 14:55] VITALS: BP 114/71
--- NOTE | 2025-03-02 14:59 | W.PN.HOSP.TC ---
Today's Communication/Plan
-
GDMT being adjusted
Heparin to Coumadin bridge
Assessment / Plan
Assessment / Plan
Impression
Patient is a 59y F with PMH significant for CVA with R hemiparesis / aphasia and A-Fib who presents to ED complaining of SOB.
Acute CHF reduced EF
Cardiomyopathy with EF 30-35%
History of CVA with residual expressive aphasia
History of tracheostomy in the settings of acute CVA
Seizure disorder
Chronic anticoagulation with Coumadin, unknown reason, possible paroxysmal atrial fibrillation
Hypothyroidism on methimazole
Former smoker
Plan
Subjective Dyspnea
#Acute HFrEF
� S/p IV diuresis, hold after episode of Syncope, hypotension and mild BOGDAN that now resolved
� Monitor Daily weights, I's and O's
Left heart cath on 02/27 with no CAD
Optimize medical therapy for heart failure reduced EF/cardiomyopathy.
Continue metoprolol. Consider transition to Cardizem
Zestril had been discontinued for washout prior to initiation of Entresto
Consider/pricing SGLT2 inhibitor
#BOGDAN
-resolved
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
- Stable. No new focal deficits.
- Patient is capable of communication albeit with some difficulty.
-Reinstate Coumadin with heparin bridge
According to outpatient medical records patient was on anticoagulation secondary to thrombophilia, possibly APS with no option for NOAC
Possible history of Atrial Fibrillation - Unknown Type
- Stable. Continue Coumadin and follow daily INR / adjust as needed.
- Switch to Toprol
� Patient has palpitations times, will require outpatient monitor
#Seizures
� Continue Keppra
DVT Prophylaxis: On Coumadin
Code Status: Full
Anticipated Discharge: 24 - 48 hours
Subjective/Interval History
-
Date of Service: March 02, 2025
Objective Data
-
Labs:
Laboratory Results
03/02/25 03/02/25
06:45 13:20
WBC 7.7
Hgb 13.9
Hct 42.1
Plt Count 228
PT 21.5 H
INR 1.81
APTT 171.9 H* 129.5 H
Vital Signs:
Vital Signs
Temp Pulse Resp BP Pulse Ox
97.8 F 88 20 114/71 98
03/02/25 14:55 03/02/25 14:55 03/02/25 14:55 03/02/25 14:55 03/02/25 14:55
I&O
03/01/25 03/02/25 03/03/25
06:59 06:59 06:59
Intake Total 720 / 720 1080 / 1080 720 / 720
Balance 720 / 720 1080 / 1080 720 / 720
Physical Exam
-
General: Well Developed and No Apparent Distress
HEENT: Normocephalic, Atraumatic and Moist Mucous Membranes
Respiratory: Clear to Auscultation
Cardiac: Regular Rhythm and S1/S2; Negative Murmur, Rub or Gallop
GI: Soft, Nontender, Nondistended and Normal Bowel Sounds; Negative Organomegaly
Rectal: Deferred by Provider
Musculoskeletal: No Clubbing, No Cyanosis and No Edema
Skin: Negative Rash
Neuro: Nonfocal/Grossly Intact
--- NOTE | 2025-03-02 15:24 | W.PN.CARDCBS ---
Addendum entered and electronically signed by Ken Ochoa MD 03/02/25 16:14:
I saw and examined the patient.
The Livestock Farm Workers's note was reviewed and I agree with the note.
Comment:
GEN: No distress, awake, Ox3
HEENT: supple, anicteric, mmm
LUNGS: CTA, no wheezes/rales
CV: Reg, S1/S2, 1/6 syst LSB, no gallop
ABD: soft, BS+, NT/ND
EXT: No edema
NEURO: aphasia
SKIN: No rash
Plan:
Overall remains stable. Continue Toprol, Farxiga, and Lasix 40 mg p.o. daily. Breathing is improved.
INR up to 1.8 today. Continue heparin to Coumadin. Hopeful for discharge in a.m.
Creatinine stable at 0.8
Original Note:
Today's Communication / Plan
-
INR increased from 1.2 yesterday to 1.8 today, expect she will be at goal tomorrow
Cont Lasix 40 mg PO daily, weight is stable
Impression / Plan
-
PCP: Shy ARREDONDO
Conference Concierge: unknown
Impression:
Admitted with OVALLE 02/21/25
Acute HFrEF
NICM, EF 30-35% by echo 02/21/25
Nonobstructive CAD by cath 02/27/25
h/o CVA with residual expressive aphasia
Prior tracheostomy in setting of above
History of seizure
Chronic Coumadin managed by PCP, unclear reasons, possible Afib
Hyperthyroidism
Former smoker
Syncopal episode 02/23/25 with SBP 80s
Echo 02/21/2025: TDS, EF 30 to 35%, diffusely hypokinetic LV with apical dyskinesis, trivial pericardial effusion, mild MR, no prior for comparison
R/[facility] 02/27/25: LVEDP 8, no obstructive CAD
Plan:
-Presented with shortness of breath, mostly with exertion. Admitted with acute heart failure exacerbation, proBNP 2039. Patient has not had previous cardiology care through the [facility] system and we called turkey pinner that she thinks she may have
seen and they have no records on patient either
-Diuresed 7 lbs with Lasix 40 mg IV daily diuresis. Patient was not taking a diuretic prior to admission. Patient was transitioned to Lasix 40 mg PO daily starting 02/28/2025 after LVEDP was down to 8 by [facility] 02/27/2025. Weight is stable at 194 lbs
on my review 03/02/25.
-Echo 02/21/2025 showed EF 30 to 35%
-Patient had nonselective CAD by [facility] 02/27/2025
-Outpatient dose of Lopressor was changed to Toprol XL 25 mg daily this admission
-Attempted to start lisinopril 2.5 mg daily this admission, but patient had hypotension and near syncope on 02/28/2025 so lisinopril stopped. As BP improves with transition to oral diuretic could consider an attempt at Entresto 24/26 mg BID, last
dose of lisinopril was 02/28/25 so would not start Entresto until 03/04/25
-Start Farxiga 10 mg daily, ordered by me 03/01/2025
-Cardiology called 2 different offices associated with [facility] and they have no record of following patient. Also called and requested records from [facility] in [place], [place] and await records, they have not arrived yet.
-Patient is chronically on warfarin after remote CVA, but patient is unsure what the cause of the CVA was. Cardiology obtained records from the PCP and it states that CVA may have been due to some other type of hematologic disease so it is unclear
if we can safely transition to DOAC. For now warfarin has been resumed and patient is on a heparin to warfarin bridge. INR is 1.8 on my review of labs 03/02/2025. Warfarin 7.5 mg ordered for 03/02/2025 PM. INR goal is 2-3, the patient does not
know how she usually gets her INRs checked. Patient reports her stepmother Corinna usually handles that for her. INRs managed by PCP office
-No documented atrial arrhythmia
Attempted to get records: Unknown turkey pinner. Called [facility] at [facility] to see if patient was previously seen there. Open H[employer] Laborer noted patient has not been seen there, but reported that from what she could see, patient was seen by
Marco at [facility]. [facility] was then called, but vaccine customer representative there stated they have no record of patient being seen previously. Awaiting records from [facility].
Progress Note - Conference Concierge
Subjective
Date of Service: March 02, 2025
Feels fine, walking the halls without OVALLE
Objective
Labs:
03/02/25 06:45
02/28/25 04:42
Labs
Hgb 13.9 g/dL (12.0-16.0) 03/02/25 06:45
Hct 42.1 % (37.0-47.0) 03/02/25 06:45
Plt Count 228 10^3/uL (130-400) 03/02/25 06:45
PT 21.5 Sec (11.4-14.6) H 03/02/25 06:45
INR 1.81 03/02/25 06:45
APTT 129.5 Sec (23.4-35.0) H 03/02/25 13:20
Sodium 138 mmol/L (135-145) 02/28/25 04:42
Potassium 4.2 mmol/L (3.5-5.1) 02/28/25 04:42
BUN 17 mg/dl (7-17) 02/28/25 04:42
Creatinine 0.8 mg/dL (0.6-1.0) 02/28/25 04:42
Glucose 106 mg/dl (70-99) H 02/28/25 04:42
Vital Signs and I&O:
Vital Signs
Temp Pulse Resp BP Pulse Ox
97.8 F 88 20 114/71 98
03/02/25 14:55 03/02/25 14:55 03/02/25 14:55 03/02/25 14:55 03/02/25 14:55
Vital Signs
Temp Pulse Resp BP Pulse Ox
97.8 F 88 20 114/71 98
03/02/25 14:55 03/02/25 14:55 03/02/25 14:55 03/02/25 14:55 03/02/25 14:55
Intake & Output
02/28/25 03/01/25 03/02/25 03/03/25
06:59 06:59 06:59 06:59
Intake Total 1020 / 1020 720 / 720 1080 / 1080 720 / 720
Balance 1020 / 1020 720 / 720 1080 / 1080 720 / 720
Physical Exam
Physical Exam
GEN: NAD. AAO x 3. Expressive aphasia
LUNGS: RA. No audible wheeze
CV: SR on telemetry.
EXT: No edema B/L
[2025-03-02] MEDS: COUMADIN 7.5 MG PO (17:36)
[2025-03-02] MEDS: LIPITOR 20 MG PO (17:36)
[2025-03-02 19:27] VITALS: BP 128/72
[2025-03-02 21:54] LABS: APTT 103.3 Sec (23.4-35.0)
[2025-03-02 22:50] VITALS: BP 124/76
[2025-03-03 03:23] VITALS: BP 126/83
[2025-03-03 03:50] LABS: APTT 112.4 Sec (23.4-35.0)
[2025-03-03 03:52] LABS: INR 2.18; PT 24.8 Sec (11.4-14.6)
[2025-03-03 05:48] VITALS: BMI 32.2
[2025-03-03 08:00] VITALS: BP 148/78
[2025-03-03] MEDS: FARXIGA 10 MG PO (08:19)
[2025-03-03] MEDS: TAPAZOLE 5 MG PO (08:20)
[2025-03-03] MEDS: KEPPRA 500 MG PO (08:20)
[2025-03-03] MEDS: TOPROL XL 25 MG PO (08:20)
[2025-03-03 08:21] LABS: APTT 70.9 Sec (23.4-35.0)
[2025-03-03] MEDS: LASIX 40 MG PO (08:21)
[2025-03-03] MEDS: MIRALAX PO (08:25)
--- NOTE | 2025-03-03 11:31 | W.PN.CARDCBS ---
Addendum entered and electronically signed by Ken Ochoa MD 03/03/25 14:52:
I saw and examined the patient.
The Physical Trainer's note was reviewed and I agree with the note.
Comment:
GEN: No distress, awake, Ox3
HEENT: supple, anicteric, mmm
LUNGS: CTA, no wheezes/rales
CV: Reg, S1/S2, 1/6 syst LSB, no gallop
ABD: soft, BS+, NT/ND
EXT: No edema
NEURO: aphasia
SKIN: No rash
PLan:
INR 2.18. Okay to stop heparin and continue warfarin.
Stable for discharge.
Tinea Toprol and Farxiga. Blood pressure dropped when starting lisinopril during this admission. Would consider trial of Entresto as outpatient if blood pressure remains stable.
Will arrange follow-up.
Original Note:
Today's Communication / Plan
-
Continue PO lasix 40mg daily
Continue Warfarin, INR at goal, 2.18. Managed by PCP
Continue Toprol, Farxiga. Consider starting Entresto 24/26 mg BID at discharge versus at follow up visit
Cardiology follow up arranged, ok for discharge
Impression / Plan
-
PCP: Shy ARREDONDO
Failure Analysis Engineer: unknown, wishes to follow up w/ [facility]
Impression:
Admitted with OVALLE 02/21/25
Acute HFrEF
NICM, EF 30-35% by echo 02/21/25
Nonobstructive CAD by cath 02/27/25
h/o CVA with residual expressive aphasia
Prior tracheostomy in setting of above
History of seizure
Chronic Coumadin managed by PCP, unclear reasons, possible Afib
Hyperthyroidism
Former smoker
Syncopal episode 02/23/25 with SBP 80s
Echo 02/21/2025: TDS, EF 30 to 35%, diffusely hypokinetic LV with apical dyskinesis, trivial pericardial effusion, mild MR, no prior for comparison
R/[facility] 02/27/25: LVEDP 8, no obstructive CAD
Plan:
-Presented with shortness of breath, mostly with exertion. Admitted with acute heart failure exacerbation, proBNP 2039.
-Diuresed with IV lasix 40mg daily. Weight down to 193 lbs on 03/03, down 8lbs this admission.
-Transitioned to PO lasix 40mg daily 02/28. Continue at discharge.
-Creat stable at 0.8 02/28. Check BMP in 1 week as OP
-Echo 02/21 noted EF 30-35%. [facility] 02/27 revealed no obstructive CAD.
-Continue medical therapy. Lopressor changed to Toprol 25 mg daily and new to Farxiga 10mg daily.
-Lisinopril started earlier in admission, but stopped after hypotension and near syncope 02/28. BP has been improved w/ transition to PO lasix, so would consider starting Entresto at discharge.
-Patient is chronically on warfarin after remote CVA, but patient is unsure what the cause of the CVA was. Cardiology obtained records from the PCP and it states that CVA may have been due to some other type of hematologic disease so it is unclear
if we can safely transition to DOAC.
-Plan is to continue warfarin and has been bridging w/ heparin. INR goal 2-3. INR 03/03 up to 2.18. Would continue warfarin and can stop heparin as now therapeutic. INR managed through PCP as OP.
-OK for discharge from cardiac standpoint. Follow up arranged.
Attempted to get records: Unknown market intelligence consultant. Called [facility] at [facility] to see if patient was previously seen there. Microfilm Mounter noted patient has not been seen there, but reported that from what she could see, patient was seen by
Marco at [facility]. [facility], but digital sales representative there stated they have no record of patient being seen previously. Awaiting records from [facility].
Progress Note - Failure Analysis Engineer
Subjective
Date of Service: March 03, 2025
Feeling well. No complaints.
Objective
Labs:
03/02/25 06:45
02/28/25 04:42
Labs
Hgb 13.9 g/dL (12.0-16.0) 03/02/25 06:45
Hct 42.1 % (37.0-47.0) 03/02/25 06:45
Plt Count 228 10^3/uL (130-400) 03/02/25 06:45
PT 24.8 Sec (11.4-14.6) H 03/03/25 03:30
INR 2.18 03/03/25 03:30
APTT 70.9 Sec (23.4-35.0) H 03/03/25 08:01
Sodium 138 mmol/L (135-145) 02/28/25 04:42
Potassium 4.2 mmol/L (3.5-5.1) 02/28/25 04:42
BUN 17 mg/dl (7-17) 02/28/25 04:42
Creatinine 0.8 mg/dL (0.6-1.0) 02/28/25 04:42
Glucose 106 mg/dl (70-99) H 02/28/25 04:42
Vital Signs and I&O:
Vital Signs
Temp Pulse Resp BP Pulse Ox
97.8 F 83 18 148/78 98
03/03/25 08:00 03/03/25 08:20 03/03/25 08:00 03/03/25 08:20 03/03/25 08:00
Vital Signs
Temp Pulse Resp BP Pulse Ox
97.8 F 83 18 148/78 98
03/03/25 08:00 03/03/25 08:20 03/03/25 08:00 03/03/25 08:20 03/03/25 08:00
Intake & Output
03/01/25 03/02/25 03/03/25 08/23/25
06:59 06:59 06:59 06:59
Intake Total 720 / 720 1080 / 1080 1200 / 1200
Balance 720 / 720 1080 / 1080 1200 / 1200
Physical Exam
Physical Exam
GEN: No distress, awake, alert, oriented x3, expressive aphasia
HEENT: supple, anicteric, mmm
LUNGS: CTA b/l, no wheezes/rales
CV: Reg, S1/S2, no murmur
EXT: No clubbing, cyanosis, or edema
NEURO: Gross non-focal
SKIN: Warm, dry, no rash
--- NOTE | 2025-03-03 11:41 | CM ---
Addendum entered by Teressa Alba 03/03/25 13:56:
Patient made aware that BP cuff Omron are $60 at [facility].
Original Note:
Chart reviewed and plan is to home with [facility].
[facility]
[phone]
[2025-03-03 12:00] VITALS: BP 131/71
--- NOTE | 2025-03-03 14:58 | W.DCSUMMARY ---
Discharge Summary
Discharge Data
Date of Admission: 02/22/25
Date of Discharge: 03/03/25
-
Pending Results: No
Hospital Course
Primary diagnosis:
Acute heart failure with reduced EF
Secondary diagnosis:
History of CVA with residual expressive aphasia
History of tracheostomy in the settings of acute CVA
Seizure disorder
Chronic anticoagulation with Coumadin possible paroxysmal atrial fibrillation
Hypothyroidism on methimazole
Hospital course:
59-year-old patient who lives at home with above past medical history presented with acute onset of shortness of breath and was discovered to be in heart failure. Echocardiogram showed EF of 30 to 35%. He had a left heart cath on 02/27 with
nonobstructive CAD. Was seen by cardiology. Was put on IV diuresis with improved and weight and resolution of shortness of breath. She lost 8 pounds. Discharge weight was 193 pounds. Diuretics were changed to oral Lasix, continued on
beta-adán, SGLT2 inhibitor Farxiga was started. Plan is for Entresto possibly as an outpatient. Zestril was discontinued to facilitate diuresis.
She was put on heparin bridge to facilitate inpatient testing and was resumed on Coumadin [advised to take her home dose] on discharge.she is on Coumadin for possible atrial fibrillation. She was in sinus rhythm during the stay here.
Today she was without shortness of breath or chest pain. No dizziness. Afebrile. Pulse 89. Blood pressure 131/71. On room air. Chest was clear. INR 2.18. BMP and CBC were normal yesterday. Creatinine was 0.8.
She was well stable medically for discharge home. She was discharged home with health care.
Consultants on board:
Cardiology-Omari Adams
Discharge Plan
-
Patient Disposition: Home with Home Care
Discharge Diagnosis/Procedures: Acute CHFrEF s/p cardiac catheterization non obstructive CAD
Diet: Low Cholesterol
Activity: As tolerated
Driving Restrictions: As prior to admission
Bathing Restrictions: None
Blood Work: BMP/INR in 1 week- arrange through your PCP
Specialty Instructions: Weigh Daily- Call MD for wt gain/loss 3 lbs overnight/5 lbs in 1 week
Stand Alone Forms: DC Instructions- Cath/EP Lab
Referrals:
Josee Llamas PA-C [Specified Professional Personl, Cardiology] - 03/29/25 9:40 am
Referral Note: You have a follow up visit with cardiology at the [place] office. Please call with questions.
Shy Fox CRNP [Family Provider, General] - in less than 1 week
Prescriptions:
New
furosemide 40 mg Tablet
40 mg PO DAILY Qty: 30 0RF
sennosides [Antoinette-doug] 8.6 mg Tablet
8.6 mg PO HS Qty: 30 0RF
atorvastatin 20 mg Tablet
20 mg PO QPM Qty: 30 0RF
polyethylene glycol 3350 17 gram Powder In Packet
17 g PO DAILY Qty: 30 0RF
metoprolol succinate 25 mg Tablet Extended Release 24 Hr
25 mg PO DAILY Qty: 30 0RF
dapagliflozin propanediol 10 mg Tablet
10 mg PO DAILY Qty: 30 0RF
Continued
levetiracetam [Keppra] 500 mg Tablet
500 mg PO BID
warfarin 2.5 mg Tablet
2.5 mg PO DIRECTED
Rx Instructions:
take 2mg on thursday and 2.5mg on thursday
methimazole 5 mg Tablet
5 mg PO DAILY
Discontinued
metoprolol tartrate 25 mg Tablet
25 mg PO DAILY
Discharge Orders:
Discharge Patient (As Directed); Ordered 03/03/25
Ordered By: Ayaan Manuel
Discharge Date and Time
Print Language: VINCENTIAN
[2025-03-03 16:00] VITALS: BP 145/85
[2025-03-03] MEDS: LIPITOR 20 MG PO (18:28)
== END 2025-03-03 18:44 | disposition home health service (06) | DRG 287 ==
LOC: 4 WEST ACU 15:55
PROVIDERS: Emergency Medicine; Internal Medicine; Internal Medicine Cardiovascular Disease; Internal Medicine Interventional Cardiology; Nurse Practitioner; Physician Assistant; Student in an Organized Health Care Education/Training Program; ADMITTING PHYSICIAN Hospitalist; ATTENDING PHYSICIAN Internal Medicine; CONSULT PHYSICIAN Nuclear Medicine Nuclear Cardiology; EMERGENCY PHYSICIAN Emergency Medicine; FAMILY PHYSICIAN Nurse Practitioner Adult Health
PROC: 4A023N7 Measurement of Cardiac Sampling and Pressure, Left Heart, Percutaneous Approach (ICD-10-PCS; 2025-02-27)
PROC: B211YZZ Fluoroscopy of Multiple Coronary Arteries using Other Contrast (ICD-10-PCS; 2025-02-27)
DX: I50.21 Acute systolic (congestive) heart failure (principal); I42.8 Other cardiomyopathies; N17.9 Acute kidney failure, unspecified; I48.0 Paroxysmal atrial fibrillation; E05.90 Thyrotoxicosis, unspecified without thyrotoxic crisis or storm; G40.909 Epilepsy, unspecified, not intractable, without status epilepticus; I25.10 Atherosclerotic heart disease of native coronary artery without angina pectoris; R55 Syncope and collapse; I49.3 Ventricular premature depolarization; J44.9 Chronic obstructive pulmonary disease, unspecified; E66.9 Obesity, unspecified; Z68.33 Body mass index [BMI] 33.0-33.9, adult; I69.341 Monoplegia of lower limb following cerebral infarction affecting right dominant side; I69.320 Aphasia following cerebral infarction; I25.2 Old myocardial infarction; Z11.52 Encounter for screening for COVID-19; Z79.01 Long term (current) use of anticoagulants; Z79.899 Other long term (current) drug therapy; Z87.891 Personal history of nicotine dependence; Z93.0 Tracheostomy status
CPT/HCPCS: 70450; 71046; 80048; 80053; 80061; 81003; 81015; 82962; 83036; 83735; 83880; 84443; 84484; 85025; 85027; 85610; 85730; 87086; 87502; 87811; 92526; 92610; 93005; 93306; 93458; 93970; 94640; 97116; 97163; 97530; 99152; 99153; C1894; Q9950; Q9967

== ENCOUNTER → 2025-06-21 11:04 | Outpatient (REF) | payer OTHER, SELFPAY | LOC: HWRCS 11:04 | PROVIDERS: ATTENDING PHYSICIAN Physician Assistant Medical; FAMILY PHYSICIAN Nurse Practitioner Adult Health | DX: I42.8 Other cardiomyopathies (principal); I50.20 Unspecified systolic (congestive) heart failure | CPT/HCPCS: 93306 ==